=== PATIENT | female | born 1935 | race Caucasian/White ===

== ENCOUNTER 2020-04-28 20:26 | Inpatient (IN) | payer OTHER ==
[2020-04-28 20:51] VITALS: BMI 22.2
[2020-04-28] MEDS ORDERED: SODIUM CHLORIDE 1,000 ML IV STA (21:04)
--- NOTE | 2020-04-28 21:30 | PDOC ---
History of Present Illness - General Chief Complaint: Injury Stated Complaint: FALL Time Seen by Provider: 04/28/20 20:42 - History of Present Illness Initial Comments: 04/28/20 21:13 HPI: 85 y/o F with hx of HTN and HLD BIBEMS for fall from bed and has been on the ground for several hours, covered in stool. She reports reaching to her bedside table for her medicine bottle, but it fell. When she tried reaching for it, she fell out of bed and wasnt able to get up. She has been sitting with her back against the bed since ?5am. She said she hasnt been able to get up because she has a "bone problem." Her family had been trying to reach her today but hasnt responded, prompting an EMS call. She denies fever, chills, dysura, change in BM, SOB, chest pain, PRESTON, LH, change in vision. Of note, daughter and son have been reached and expressed concern of dementia. Her 3 weeks ago and 2 of her sons in the past 2 years due to cancer. She currently lives alone and performs all ADLs but has right hip problems. Family would like patient to be evaluated for dementia Evy (daughter): [phone] Pranav (son): [phone] PMHx: as noted above ROS: as noted SHx: Denies tobacco use; no alcohol use; no rec drugs Allergies: NKDA ROS: GENERAL/CONSTITUTIONAL: No fever or chills. No weakness. HEAD, EYES, EARS, NOSE AND THROAT: No change in vision. No ear pain or discharge. No sore throat. CARDIOVASCULAR: No chest pain or shortness of breath RESPIRATORY: No cough, wheezing, or hemoptysis. GASTROINTESTINAL: No nausea, vomiting, diarrhea or constipation. GENITOURINARY: No dysuria, frequency, or change in urination. MUSCULOSKELETAL: No joint or muscle swelling or pain. No neck or back pain. SKIN: +ecchymosis left eye NEUROLOGIC: No headache, vertigo, loss of consciousness, or change in strength/sensation. ENDOCRINE: No increased thirst. No abnormal weight change HEMATOLOGIC/LYMPHATIC: No anemia, easy bleeding, or history of blood clots. ALLERGIC/IMMUNOLOGIC: No hives or skin allergy. PE: GENERAL: Awake, alert, and fully oriented, no acute distress HEAD: left eye perioribital ecchymosis and left brow 2cm laceration not actively bleeding with mild edema, ttp EYES: EOMI, sclera anicteric, conjunctiva clear ENT: Auricles normal inspection, hearing grossly normal, nares patent, oropharynx clear without exudates. dry mucosa NECK: Normal ROM, no lymphadenopathy LUNGS: No increased work of breathing, symmetrical chest rise, clear to auscultation bilaterally, no wheezes, crackles or rhonchi HEART: Regular rate, regular rhythm, normal S1 and S2, no murmur, peripheral pulses 2+ and equal bilaterally. ABDOMEN: Soft, nondistended, nontender. No guarding, no rebound. No masses. No CVAT MUSCULOSKELETAL: FROM NEUROLOGICAL: Cranial nerves II through XII grossly intact. Normal speech, no focal sensorimotor deficits SKIN: Warm, Dry, normal turgor, no rashes or lesions noted Past History - Medical History Allergies/Adverse Reactions: Allergies Allergy/AdvReac Type Severity Reaction Status Date / Time No Known Drug Allergies Allergy Verified 04/28/20 20:46 Home Medications: Ambulatory Orders Aspirin [ASA -] 81 mg PO DAILY #0 tab.chew 09/06/13 Simvastatin [Zocor -] 10 mg PO HS #0 tablet 09/06/13 Acetaminophen [Tylenol .Regular Strength -] 650 mg PO Q4H PRN 04/03/14 Anemia: No Asthma: No Cancer: No Cardiac Disorders: Yes (STENOSIS) CVA: No COPD: No CHF: No Dementia: No Diabetes: No GI Disorders: No Disorders: No HTN: No Hypercholesterolemia: Yes Liver Disease: No Seizures: No Thyroid Disease: No - Surgical History Abdominal Surgery: No Appendectomy: No Cardiac Surgery: Yes (CARDIAC CATH - 2 WEEKS AGO) Cholecystectomy: No Lung Surgery: No Orthopedic Surgery: No - Psycho-Social/Smoking History Smoking History: Never smoked Have you smoked in the past 12 months: No If you are a former smoker, when did you quit?: 40YRS AGO - Substance Abuse Hx (Audit-C & DAST Scrn) How often the patient has a drink containing alcohol: Never Score: In Men: 4 or > Positive; In Women: 3 or > Positive: 0 Screen Result (Pos requires Nsg. Audit-10AR): Negative In the last yr the pt used illegal drug/Rx for NonMed reason: No Score: Yes response is considered Positive: 0 Screen Result (Positive result requires Nsg. DAST-10): Negative *Physical Exam - Vital Signs Last Vital Signs Temp Pulse Resp BP Pulse Ox 97.8 F 79 17 145/70 97 04/28/20 20:30 04/28/20 20:30 04/28/20 20:30 04/28/20 20:30 04/28/20 20:30 ED Treatment Course - LABORATORY CBC & Chemistry Diagram: 04/28/20 21:30 04/28/20 21:30 - RADIOLOGY Radiology Studies Ordered: Category Date Time Status CERVICAL SPINE CT W/O CONTR [CT] Stat CT Scan 04/28/20 21:[address] W/O CONTRAST [CT] Stat CT Scan 04/28/20 21:[address] WITHOUT CONTRAST [CT] Stat CT Scan 04/28/20 21:[address] W/O CONTRAST [CT] Stat CT Scan 04/28/20 21:[address] W/O CONTRAST [CT] Stat CT Scan 04/28/20 21:11 Ordered CXRPORT [CHEST X-RAY PORTABLE*] [RAD] Stat Radiology 04/28/20 21:03 Ordered Medical Decision Making - Medical Decision Making 04/28/20 21:52 85 y/o F with hx of HTN and HLD BIBEMS for fall from bed and has been on the ground for several hours, covered in stool. Family concern for functional decline and dementia over the past 3weeks since . VSS, AF. PE with left periorbital ecchymosis and left brow laceration with mild edema. -cbc, cmp, coags, ua, card prof, ekg, cxr -CT head, CT C/T/L spine, CT face -ivf 04/28/20 23:26 CK ~1200 WBC 12.6 pending ekg, ua, CT reports will admit for fall, inability to ambulate 04/29/20 00:24 CT findings include fracture at the tip of the right L2 transverse process; cholelithiasis with gallbladder wall thickening and pericholecystic fluid concerning for acute cholecystitis but a malignant mass cannot be ruled out; left hydronephorsis Will continue to RUQ and kidney US CT head and C spine negative Discharge - Discharge Information Problems reviewed: Yes Clinical Impression/Diagnosis: Fall, Head trauma Condition: Fair - Admission Yes - Follow up/Referral - Patient Discharge Instructions - Post Discharge Activity
[2020-04-28 21:55] LABS: BASO % 0.3 % (0-2.0); EOS % 0.1 % (0-4.5); HEMATOCRIT 41.1 % (32.4-45.2); HEMOGLOBIN 13.5 GM/dL (10.7-15.3); LYMPH % 10.9 % (8-40); MCH 30.4 pg (25.7-33.7); MCHC 32.9 g/dl (32.0-36.0); MEAN CELL VOLUME 92.3 fl (80-96); MONO % 7.4 % (3.8-10.2); NEUT % 81.3 % (42.8-82.8); PLATELET COUNT 257 K/MM3 (134-434); RBC 4.45 M/mm3 (3.60-5.2); WHITE BLOOD COUNT 12.8 K/mm3 (4.0-10.0)
--- NOTE | 2020-04-28 22:00 | PDOC ---
Documentation entered by Jarrell Milligan SCRIBE, acting as scribe for Tao Hennessy MD. Tao Hennessy MD: This documentation has been prepared by the Srini davis Nirvannie, SCRIBE, under my direction and personally reviewed by me in its entirety. I confirm that the documentation accurately reflects all work, treatment, procedures, and medical decision making performed by me. Attending Attestation - Resident Resident Name: BinhStalin - ED Attending Attestation I have performed the following: I have examined & evaluated the patient, The case was reviewed & discussed with the resident, I agree w/resident's findings & plan, Exceptions are as noted - HPI HPI: 04/28/20 21:54 The patient is an 85 year old female with a significant past medical history of HTN and HLD who presents to the ED via EMS s/p fall. As per patient,at approximately 5am she was reaching for her medicine bottle on her nightstand when she fell off the bed. Pt was unable to get up afterwards. Family notes attempting to call her multiple times today without a response, prompting their call to EMS. When EMS arrived, pt was encountered lying in her own feces on the ground. - Physicial Exam PE: 04/28/20 22:01 See resident exam - Medical Decision Making 04/28/20 22:02 85 F found down at home after falling out of bed. - Labs - CTs - Admit Discharge - Discharge Information Problems reviewed: Yes Clinical Impression/Diagnosis: Fall, Head trauma Condition: Fair - Follow up/Referral - Patient Discharge Instructions - Post Discharge Activity
[2020-04-28 22:02] LABS: INR 1.02 (0.83-1.09)
[2020-04-28 22:05] LABS: ACTIVATED PTT 30.2 SECONDS (25.2-36.5)
[2020-04-28 22:25] LABS: ALBUMIN 3.3 g/dl (3.4-5.0); BILIRUBIN,TOTAL 0.9 mg/dL (0.2-1); BLOOD UREA NITROGEN 18.4 mg/dL (7-18); CALCIUM 8.9 mg/dL (8.5-10.1); CREATININE 1.2 mg/dL (0.55-1.3); MAGNESIUM 2.2 mg/dL (1.8-2.4); POTASSIUM 3.8 mmol/L (3.5-5.1); TOT PROT 7.2 g/dl (6.4-8.2)
[2020-04-29] MEDS ORDERED: DIPHTH,PERTUSS(ACELL),TET 0.5 ML DISP.SYRIN IM ONE ×2 (00:34→01:41)
[2020-04-29 00:48] LABS: EPI CELLS 1 /uL (0-25.1); HYALINE CASTS 5 /uL (0-3.1); URINE APPEARANCE CLOUDY; URINE BILIRUBIN NEGATIVE (NEGATIVE); URINE COLOR YELLOW; URINE GLUCOSE (UA) NEGATIVE (NEGATIVE); URINE KETONE NEGATIVE (NEGATIVE); URINE LEUK ESTERASE 3+ (NEGATIVE); URINE NITRITE POSITIVE (NEGATIVE); URINE PROTEIN 1+ (NEGATIVE); URINE RBC 271 /uL (0-23.9); URINE WBC 834 /uL (0-25.8)
[2020-04-29] MEDS ORDERED: CEFTRIAXONE 1 GM in DEXTROSE 5%-WATER - 50 ML IVPB ONE (00:49)
--- NOTE | 2020-04-29 00:55 | HP ---
CHIEF COMPLAINT: Fall at home, Unable to Ambulate PCP: Dr Cordoba HISTORY OF PRESENT ILLNESS: This is a 85 y/o female with a PMHx of HTN, HLD. Who presents to the ED via ambulance s/p fall, unable to ambulate x yesterday morning. Patient reports attempting to retrieve her medicine bottle from her bedside table and fell OOB, unable to get up. She reports lying on the floor since morning time, soiling herself. Patient denies LOC. She reports joint aches. Per ED record: The patient's daughter and son had expressed concerns of the patient's cognitive status ?Dementia Patient reports living alone since her 's 3 weeks ago. She reports that her daughter takes her food shopping and that she cares for herself and uses a cane with ambulation. Patient denies fever, chills, cough, SOB, PRESTON, dizziness, blurred vision, CP, palpitations, AP, N/V/D, constipation, dysuria. Patient denies sick contacts or recent travel ER course was notable for: (1) Head CT- neg ICH (2) C Spine CT- neg fx or subluxation (3) Facial Bones CT- no acute orbital, nasal bone, zygomatic arch or madibular fx (4) Lumbar CT- Fx at the tip of R- L2 transverse process. There is otherwise no evidence of lumbar spine acute fx or subluxation (5) Chest CT- Acute mildly displaced right transverse process fx. No other acute fx or dislocation or traumatic subluxation. Severe left hydronephrosis Cholelithiasis with GBW thickening, pericholecystic fluid suspicious for acute cholecystitis and a malignant mass in the gallbladder wall cannot be excluded Recent Travel: None PAST MEDICAL HISTORY: HTN HLD PAST SURGICAL HISTORY: Social History: Smoking: Never Alcohol: None Drugs: None Lives alone, recently , ambulates with cane, family assists with grocery shopping Allergies No Known Drug Allergies Allergy (Verified 04/28/20 20:46) HOME MEDICATIONS: Home Medications Medication Instructions Recorded Aspirin [ASA -] 81 mg PO DAILY #0 tab.chew 09/06/13 Simvastatin [Zocor -] 10 mg PO HS #0 tablet 09/06/13 Acetaminophen [Tylenol .Regular 650 mg PO Q4H PRN 04/03/14 Strength -] REVIEW OF SYSTEMS CONSTITUTIONAL: Absent: fever, chills, diaphoresis, generalized weakness, malaise, loss of appetite, weight change HEENT: Absent: rhinorrhea, nasal congestion, throat pain, throat swelling, difficulty swallowing, mouth swelling, ear pain, eye pain, visual changes CARDIOVASCULAR: Absent: chest pain, syncope, palpitations, irregular heart rate, lightheadedness, peripheral edema RESPIRATORY: Absent: cough, shortness of breath, dyspnea with exertion, orthopnea, wheezing, stridor, hemoptysis GASTROINTESTINAL: Absent: abdominal pain, abdominal distension, nausea, vomiting, diarrhea, constipation, melena, hematochezia GENITOURINARY: Absent: dysuria, frequency, urgency, hesitancy, hematuria, flank pain, genital pain MUSCULOSKELETAL: arthralgia Absent: myalgia, joint swelling, back pain, neck pain SKIN: Absent: rash, itching, pallor HEMATOLOGIC/IMMUNOLOGIC: Absent: easy bleeding, easy bruising, lymphadenopathy, frequent infections ENDOCRINE: Absent: unexplained weight gain, unexplained weight loss, heat intolerance, cold intolerance NEUROLOGIC: unsteady gait Absent: headache, focal weakness or paresthesias, dizziness, seizure, mental status changes, bladder or bowel incontinence PSYCHIATRIC: Absent: anxiety, depression, suicidal or homicidal ideation, hallucinations. PHYSICAL EXAMINATION Vital Signs - 24 hr 04/28/20 20:30 Temperature 97.8 F Pulse Rate 79 Respiratory 17 Rate Blood Pressure 145/70 O2 Sat by Pulse 97 Oximetry (%) GENERAL: Awake, alert, and fully oriented, in no acute distress. HEAD: Lac to L- brow, no active bleed, Normocephalic EYES:+Ecchymotic bruising to L- Orbit. Pupils equal, round and reactive to light, extraocular movements intact, sclera anicteric, conjunctiva clear. No lid lag. EARS, NOSE, THROAT: Dry mucous membranes. Ears normal, nares patent, oropharynx clear without exudates. NECK: Normal range of motion, supple without lymphadenopathy, JVD, or masses. LUNGS: Breath sounds equal, clear to auscultation bilaterally. No wheezes, and no crackles. No accessory muscle use. HEART: Regular rate and rhythm, normal S1 and S2 without murmur, rub or gallop. ABDOMEN: Soft, nontender, not distended, normoactive bowel sounds, no guarding, no rebound, no masses. No hepatomegaly or splenomegaly. MUSCULOSKELETAL:Tenderness to b/l shoulders, knees. Normal range of motion at all joints. No bony deformities or No CVA tenderness. UPPER EXTREMITIES: 2+ pulses, warm, well-perfused. No cyanosis. No clubbing. No peripheral edema. LOWER EXTREMITIES: 2+ pulses, warm, well-perfused. No calf tenderness. No peripheral edema. NEUROLOGICAL: Cranial nerves II-XII intact. Normal speech. Gait not observed. PSYCHIATRIC: Cooperative. Good eye contact. Appropriate mood and affect. SKIN: Eccyhmotic briusing to L- Orbit, Warm, dry, normal turgor, no rashes or lesions noted, normal capillary refill. Laboratory Results - last 24 hr 04/28/20 04/28/20 04/28/20 21:30 21:30 21:30 WBC 12.8 H RBC 4.45 Hgb 13.5 Hct 41.1 MCV 92.3 MCH 30.4 MCHC 32.9 RDW 14.0 Plt Count 257 MPV 9.0 Absolute Neuts (auto) 10.4 H Neutrophils % 81.3 D Lymphocytes % 10.9 D Monocytes % 7.4 Eosinophils % 0.1 D Basophils % 0.3 Nucleated RBC % 0 PT with INR 12.00 INR 1.02 PTT (Actin FS) 30.2 Sodium 140 Potassium 3.8 Chloride 105 Carbon Dioxide 28 Anion Gap 6 L BUN 18.4 H Creatinine 1.2 Est GFR (CKD-EPI)AfAm 47.06 Est GFR (CKD-EPI)NonAf 40.60 Random Glucose 105 Calcium 8.9 Magnesium 2.2 Total Bilirubin 0.9 AST 41 H ALT 22 Alkaline Phosphatase 93 Creatine Kinase Creatine Kinase Index CK-MB (CK-2) Troponin I Total Protein 7.2 Albumin 3.3 L Urine Color Urine Appearance Urine pH Ur Specific [place] Urine Protein Urine Glucose (UA) Urine Ketones Urine Blood Urine Nitrite Urine Bilirubin Urine Urobilinogen Ur Leukocyte Esterase Urine WBC (Auto) Urine RBC (Auto) Urine Casts (Auto) U Epithel Cells (Auto) Urine Bacteria (Auto) 04/28/20 04/29/20 21:30 00:10 WBC RBC Hgb Hct MCV MCH MCHC RDW Plt Count MPV Absolute Neuts (auto) Neutrophils % Lymphocytes % Monocytes % Eosinophils % Basophils % Nucleated RBC % PT with INR INR PTT (Actin FS) Sodium Potassium Chloride Carbon Dioxide Anion Gap BUN Creatinine Est GFR (CKD-EPI)AfAm Est GFR (CKD-EPI)NonAf Random Glucose Calcium Magnesium Total Bilirubin AST ALT Alkaline Phosphatase Creatine Kinase 1166 H Creatine Kinase Index 0.7 CK-MB (CK-2) 9.0 H Troponin I 0.03 Total Protein Albumin Urine Color Yellow Urine Appearance Cloudy Urine pH 8.0 Ur Specific [place] 1.008 L Urine Protein 1+ H Urine Glucose (UA) Negative Urine Ketones Negative Urine Blood 2+ H Urine Nitrite Positive H Urine Bilirubin Negative Urine Urobilinogen 1.0 Ur Leukocyte Esterase 3+ H Urine WBC (Auto) 834 Urine RBC (Auto) 271 Urine Casts (Auto) 5 U Epithel Cells (Auto) 1 Urine Bacteria (Auto) >10,000 ASSESSMENT/PLAN: This is a 85 y/o female with a PMhx of HTN, HLD. Admitted to Telemetry for Rhabdomyolosis, UTI, s/p Fall, Unable to Ambulate for further evaluation of their emergent condition. Plan: 1. Rhabdomyolosis Cardiac Monitoring Serial Enzymes Appreciate Cardiology consult [id number], likely secondary to fall NS bolus given in ED, will continue gentle IVF EKG- NSR Monitor CBC, CMP 2. UTI UA- +1 protein, +2 blood, +nitrate, +3 leukocyte esterase, 834 WBC, >10,000 Bacteria Urine Culture-pending Will start on Ceftriaxone empirically, until UC resulted Monitor CBC Monitor vitals 3. Fall fall at home Head CT- neg ICH C-spine CT- neg fx or subluxation Facial Bones- no acute orbital, nasal bone, zygomatic arch or mandibular fx Lumbar CT- fx at the tip of right L2 transverse process Chest CT- acute mildly displaced right transverse process fx. no other acute fx or dislocation or traumatic subluxation. Severe left hydronephrosis. Cholelithiasis with GBW thickening. ?cholecystitis and a malignant mass in the gallbladder wall cannot be excluded Consider Ortho Consult Consider PT Eval Wound Care Fall Precautions Monitor vitals 4. Leukocytosis Likely secondary to infection vs inflammation vs malignancy Blood Cultures-pending Currently treating for UTI Patient is currently afebrile CT Chest -reviewed Monitor CBC Monitor vitals 5. Unable to ambulate Likely secondary to Fall vs OA Pt Eval- will defer to PMD Fall Precautions Tylenol prn Neurovascular-checks 6. Hypertension stable Monitor BP Will need to verify home med with pts pharmacy or PMD in am Monitor renal function 7. Hyperlipidemia stable Continue home med Monitor LFTs 8. Person Under Investigation for COVID 19 Infection SMART PORTFOLIO LEAD- 1, low risk COVID PCR-pending Isolation Precautions FEN NS@75ml/hr Replete lytes prn NPO DVT ppx OOB SCDs Heparin SQ Dispo: Requires Inpatient Care Family Medical History Family History: Unremarkable Problem List - Problem (1) Rhabdomyolysis Code(s): M62.82 - RHABDOMYOLYSIS (2) UTI (urinary tract infection) Code(s): N39.0 - URINARY TRACT INFECTION, SITE NOT SPECIFIED (3) Fall Code(s): W19.XXXA - UNSPECIFIED FALL, INITIAL ENCOUNTER (4) Unable to ambulate Code(s): R26.2 - DIFFICULTY IN WALKING, NOT ELSEWHERE CLASSIFIED (5) Leukocytosis Code(s): D72.829 - ELEVATED WHITE BLOOD CELL COUNT, UNSPECIFIED (6) HTN (hypertension) Code(s): I10 - ESSENTIAL (PRIMARY) HYPERTENSION (7) HLD (hyperlipidemia) Code(s): E78.5 - HYPERLIPIDEMIA, UNSPECIFIED (8) Person under investigation for COVID-19 Code(s): Z20.828 - CONTACT W AND EXPOSURE TO OTH VIRAL COMMUNICABLE DISEASES Visit type - Emergency Visit Emergency Visit: Yes ED Registration Date: 04/28/20 Care time: The patient presented to the Emergency Department on the above date and was hospitalized for further evaluation of their emergent condition. - New Patient This patient is new to me today: Yes Date on this admission: 04/29/20 - Critical Care Critical Care patient: No
[2020-04-29] MEDS ORDERED: CEFTRIAXONE 1 GM/50 ML BAG ONE ×2 (01:40→09:35)
[2020-04-29] MEDS: SODIUM CHLORIDE 1,000 ML IV SCH (01:56)
[2020-04-29 09:00] LABS: BASO % 0.7 % (0-2.0); EOS % 1.8 % (0-4.5); HEMATOCRIT 38.5 % (32.4-45.2); HEMOGLOBIN 12.5 GM/dL (10.7-15.3); LYMPH % 15.4 % (8-40); MCH 30.2 pg (25.7-33.7); MCHC 32.3 g/dl (32.0-36.0); MEAN CELL VOLUME 93.3 fl (80-96); MEAN PLT VOLUME 9.5 fl (7.5-11.1); MONO % 8.7 % (3.8-10.2); NEUT % 73.4 % (42.8-82.8); PLATELET COUNT 235 K/MM3 (134-434); RBC 4.13 M/mm3 (3.60-5.2); RDW 14.1 % (11.6-15.6); WHITE BLOOD COUNT 9.7 K/mm3 (4.0-10.0)
[2020-04-29 09:42] LABS: ALBUMIN 2.6 g/dl (3.4-5.0); BILIRUBIN,TOTAL 0.6 mg/dL (0.2-1); CALCIUM 7.9 mg/dL (8.5-10.1); MAGNESIUM 2.1 mg/dL (1.8-2.4); PHOSPHOROUS 2.8 mg/dL (2.5-4.9); POTASSIUM 3.8 mmol/L (3.5-5.1); TOT PROT 5.9 g/dl (6.4-8.2)
--- NOTE | 2020-04-29 10:21 | EKG ---
Test Reason : Blood Pressure : / mmHG Vent. Rate : 080 BPM Atrial Rate : 080 BPM P-R Int : 176 ms QRS Dur : 084 ms QT Int : 394 ms P-R-T Axes : 045 042 026 degrees QTc Int : 454 ms NORMAL SINUS RHYTHM NORMAL ECG WHEN COMPARED WITH ECG OF 10-SEP-2018 13:15, Previous ECG with lead misplacement, probably no new changes Confirmed by Noemí Daniel ([id number]) on 04/29/2020 10:21:10 AM Referred By: Confirmed By:Noemí Daniel
--- NOTE | 2020-04-29 13:07 | HP ---
Admitting History and Physical - Primary Care Physician PCP: Evelio Cordoba - Admission Chief Complaint: Fall History of Present Illness: 85 y/o female with a PMHx of HTN, HLD. Who presents to the ED via ambulance s/p fall, Dementia, unable to ambulate x yesterday morning. Patient reports attempting to retrieve her medicine bottle from her bedside table and fell OOB, unable to get up. She reports lying on the floor since morning time, soiling h erself. Patient denies LOC. She reports joint aches. Patient reports living alone since her 's 3 weeks ago. She reports that her daughter takes her food shopping and that she cares for herself and uses a cane with ambulation. Patient denies fever, chills, cough, SOB, PRESTON, dizziness, blurred vision, CP, palpitations, AP, N/V/D, constipation, dysuria. Patient denies sick contacts or recent travel ER course was notable for: (1) Head CT- neg ICH (2) C Spine CT- neg fx or subluxation (3) Facial Bones CT- no acute orbital, nasal bone, zygomatic arch or madibular fx (4) Lumbar CT- Fx at the tip of R- L2 transverse process. There is otherwise no evidence of lumbar spine acute fx or subluxation (5) Chest CT- Acute mildly displaced right transverse process fx. No other acute fx or dislocation or traumatic subluxation. 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: Yes: Dementia Cardiovascular: Yes: HTN - Smoking History Smoking history: Never smoked Have you smoked in the past 12 months: No If you are a former smoker, when did you quit?: 40YRS AGO - Alcohol/Substance Use Hx Alcohol Use: No Home Medications - Allergies Allergies/Adverse Reactions: Allergies Allergy/AdvReac Type Severity Reaction Status Date / Time No Known Drug Allergies Allergy Verified 04/28/20 20:46 - Home Medications Home Medications: Ambulatory Orders Aspirin [ASA -] 81 mg PO DAILY #0 tab.chew 09/06/13 Simvastatin [Zocor -] 10 mg PO HS #0 tablet 09/06/13 Acetaminophen [Tylenol .Regular Strength -] 650 mg PO Q4H PRN 04/03/14 Physical Examination Vital Signs: Vital Signs Temperature 98.6 F 04/29/20 07:06 Pulse Rate 67 04/29/20 07:06 Respiratory Rate 16 04/29/20 08:09 Blood Pressure 135/57 L 04/29/20 07:06 O2 Sat by Pulse Oximetry (%) 97 04/29/20 08:09 Labs: CBC, BMP 04/29/20 08:03 04/29/20 08:03 Problem List - Problems (1) Atrophic kidney Code(s): N26.1 - ATROPHY OF KIDNEY (TERMINAL) (2) Fall Code(s): W19.XXXA - UNSPECIFIED FALL, INITIAL ENCOUNTER (3) HLD (hyperlipidemia) Code(s): E78.5 - HYPERLIPIDEMIA, UNSPECIFIED (4) HTN (hypertension) Code(s): I10 - ESSENTIAL (PRIMARY) HYPERTENSION (5) Hydronephrosis Code(s): N13.30 - UNSPECIFIED HYDRONEPHROSIS (6) Leukocytosis Code(s): D72.829 - ELEVATED WHITE BLOOD CELL COUNT, UNSPECIFIED (7) Dementia Code(s): F03.90 - UNSPECIFIED DEMENTIA WITHOUT BEHAVIORAL DISTURBANCE (8) Sepsis Code(s): A41.9 - SEPSIS, UNSPECIFIED ORGANISM
--- NOTE | 2020-04-29 13:35 | CON.GU ---
Consult Consult Specialty:: Referred by:: Yash Reason for Consultation:: L hydronephrosis - History of Present Illness Chief Complaint: s/p fall History of Present Illness: 85 y/o female with a PMHx of HTN, HLD. Who presents to the ED via ambulance s/p fall, unable to ambulate x yesterday morning. Patient reports attempting to retrieve her medicine bottle from her bedside table and fell OOB, unable to get up. She reports lying on the floor since morning time, soiling herself. Patient denies LOC. She reports joint aches. Per ED record: The patient's daughter and son had expressed concerns of the patient's cognitive status ?Dementia Patient reports living alone since her 's 3 weeks ago. She reports that her daughter takes her food shopping and that she cares for herself and uses a cane with ambulation. Patient denies fever, chills, cough, SOB, PRESTON, dizziness, blurred vision, CP, palpitations, AP, N/V/D, constipation, dysuria. Patient denies sick contacts or recent travel cons req. ER course was notable for: (1) Head CT- neg ICH (2) C Spine CT- neg fx or subluxation (3) Facial Bones CT- no acute orbital, nasal bone, zygomatic arch or madibular fx (4) Lumbar CT- Fx at the tip of R- L2 transverse process. There is otherwise no evidence of lumbar spine acute fx or subluxation (5) Chest CT- Acute mildly displaced right transverse process fx. No other acute fx or dislocation or traumatic subluxation. 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 No: Renal Calculi - Alcohol/Substance Use Hx Alcohol Use: No - Smoking History Smoking history: Never smoked Have you smoked in the past 12 months: No If you are a former smoker, when did you quit?: 40YRS AGO Home Medications - Allergies Allergies/Adverse Reactions: Allergies Allergy/AdvReac Type Severity Reaction Status Date / Time No Known Drug Allergies Allergy Verified 04/28/20 20:46 - Home Medications Home Medications: Ambulatory Orders Aspirin [ASA -] 81 mg PO DAILY #0 tab.chew 09/06/13 Simvastatin [Zocor -] 10 mg PO HS #0 tablet 09/06/13 Acetaminophen [Tylenol .Regular Strength -] 650 mg PO Q4H PRN 04/03/14 Review of Systems - Review of Systems Genitourinary: denies: Burning, Dysuria, Flank Pain, Frequency, Hematuria Physical Exam- Vital Signs: Vital Signs Temperature 98.6 F 04/29/20 07:06 Pulse Rate 67 04/29/20 07:06 Respiratory Rate 16 04/29/20 08:09 Blood Pressure 135/57 L 04/29/20 07:06 O2 Sat by Pulse Oximetry (%) 97 04/29/20 08:09 Constitutional: Yes: Well Nourished, No Distress, Calm Gastrointestinal: Yes: WNL, Normal Bowel Sounds, Soft Renal/: Yes: WNL. No: CVA Tenderness - Left Kidneys: No: Flank Pain Left Pelvis: Yes: WNL External Genitalia: Yes: WNL Labs: CBC, BMP 04/29/20 08:03 04/29/20 08:03 Imaging - Results Cat Scan: Report Reviewed Ultrasound: Report Reviewed Problem List - Problems (1) Hydronephrosis Assessment/Plan: no urologic intervention necessary Code(s): N13.30 - UNSPECIFIED HYDRONEPHROSIS (2) Atrophic kidney Code(s): N26.1 - ATROPHY OF KIDNEY (TERMINAL) (3) Leukocytosis Code(s): D72.829 - ELEVATED WHITE BLOOD CELL COUNT, UNSPECIFIED (4) UTI (urinary tract infection) Assessment/Plan: Ur cx, iv ceftriaxone, f/u in my office after disch for cystoscopy, uroflow, PVR Code(s): N39.0 - URINARY TRACT INFECTION, SITE NOT SPECIFIED
--- NOTE | 2020-04-29 20:16 | CON.GI ---
Consult Consult Specialty:: Gastroenterology Referred by:: Dr Cordoba Reason for Consultation:: Cholelithiasis, rule out GB tumor - History of Present Illness Chief Complaint: Found lying in her feces at home History of Present Illness: 85F was found to be lying in her feces at home. She lives alone since her several weeks ago. She cannot recall recent events leading to her fall. She denies abdominal pain. Her chest CT revealed a thick walled GB with stones but the sonogram is unable to locate the GB. She has no scars to suggest a previous cholecystectomy. 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 D&C. s/p benign left lumpectomy - Alcohol/Substance Use Hx Alcohol Use: No - Smoking History Smoking history: Former smoker Have you smoked in the past 12 months: No If you are a former smoker, when did you quit?: 40YRS AGO Home Medications - Allergies Allergies/Adverse Reactions: Allergies Allergy/AdvReac Type Severity Reaction Status Date / Time No Known Drug Allergies Allergy Verified 04/28/20 20:46 - Home Medications Home Medications: Ambulatory Orders Aspirin [ASA -] 81 mg PO DAILY #0 tab.chew 09/06/13 Simvastatin [Zocor -] 10 mg PO HS #0 tablet 09/06/13 Acetaminophen [Tylenol .Regular Strength -] 650 mg PO Q4H PRN 04/03/14 Family Medical History Family Hx Cancer: Mother (Uterine cancer) Other Family History: Father age 42 of an accident Physical Exam-GI Vital Signs: Vital Signs Temperature 98.0 F 04/29/20 17:06 Pulse Rate 63 04/29/20 17:06 Respiratory Rate 16 04/29/20 08:09 Blood Pressure 139/67 04/29/20 17:06 O2 Sat by Pulse Oximetry (%) 97 04/29/20 17:06 CBC,CMP WBC 9.7 K/mm3 (4.0-10.0) 04/29/20 08:03 RBC 4.13 M/mm3 (3.60-5.2) 04/29/20 08:03 Hgb 12.5 GM/dL (10.7-15.3) 04/29/20 08:03 Hct 38.5 % (32.4-45.2) 04/29/20 08:03 MCV 93.3 fl (80-96) 04/29/20 08:03 MCH 30.2 pg (25.7-33.7) 04/29/20 08:03 MCHC 32.3 g/dl (32.0-36.0) 04/29/20 08:03 RDW 14.1 % (11.6-15.6) 04/29/20 08:03 Plt Count 235 K/MM3 (134-434) 04/29/20 08:03 MPV 9.5 fl (7.5-11.1) 04/29/20 08:03 Absolute Neuts (auto) 7.1 K/mm3 (1.5-8.0) 04/29/20 08:03 Neutrophils % 73.4 % (42.8-82.8) 04/29/20 08:03 Lymphocytes % 15.4 % (8-40) D 04/29/20 08:03 Monocytes % 8.7 % (3.8-10.2) 04/29/20 08:03 Eosinophils % 1.8 % (0-4.5) D 04/29/20 08:03 Basophils % 0.7 % (0-2.0) 04/29/20 08:03 Nucleated RBC % 0 % (0-0) 04/29/20 08:03 Sodium 141 mmol/L (136-145) 04/29/20 08:03 Potassium 3.8 mmol/L (3.5-5.1) 04/29/20 08:03 Chloride 110 mmol/L (98-107) H 04/29/20 08:03 Carbon Dioxide 25 mmol/L (21-32) 04/29/20 08:03 Anion Gap 6 MMOL/L (8-16) L 04/29/20 08:03 BUN 15.0 mg/dL (7-18) 04/29/20 08:03 Creatinine 1.0 mg/dL (0.55-1.3) 04/29/20 08:03 Est GFR (CKD-EPI)AfAm 58.66 04/29/20 08:03 Est GFR (CKD-EPI)NonAf 50.61 04/29/20 08:03 Random Glucose 79 mg/dL (74-106) 04/29/20 08:03 Calcium 7.9 mg/dL (8.5-10.1) L 04/29/20 08:03 Phosphorus 2.8 mg/dL (2.5-4.9) 04/29/20 08:03 Magnesium 2.1 mg/dL (1.8-2.4) 04/29/20 08:03 Total Bilirubin 0.6 mg/dL (0.2-1) 04/29/20 08:03 AST 34 U/L (15-37) 04/29/20 08:03 ALT 18 U/L (13-61) 04/29/20 08:03 Alkaline Phosphatase 75 U/L (45-117) 04/29/20 08:03 Creatine Kinase 752 U/L (26-192) H 04/29/20 08:03 Creatine Kinase Index 0.7 % (0.0-5.0) 04/29/20 08:03 CK-MB (CK-2) 5.6 ng/mL (0.5-3.6) H 04/29/20 08:03 Troponin I 0.03 ng/ml (0.00-0.05) 04/29/20 08:03 Total Protein 5.9 g/dl (6.4-8.2) L 04/29/20 08:03 Albumin 2.6 g/dl (3.4-5.0) L 04/29/20 08:03 TSH 1.65 uIU/ml (0.358-3.74) 04/29/20 08:03 Current Medications Generic Name Dose Route Start Last Admin Trade Name Freq PRN Reason Stop Dose Admin Ceftriaxone Sodium 1 gm/ 50 mls @ 100 mls/hr 04/30/20 10:00 Dextrose IVPB DAILY GAL Protocol Sodium Chloride 1,000 mls @ 75 mls/hr 04/29/20 01:15 04/29/20 01:56 Normal Saline - IV 75 mls/hr ASDIR GAL Administration Pneumococcal 13-Valent Conj Vacc 0.5 ml 04/29/20 19:41 Prevnar 13 Syringe - IM 04/29/20 19:42 .ONCE ONE Constitutional: Yes: Anxious Eyes: Yes: Conjunctiva Clear, Other (bruised) HENT: Yes: Atraumatic Neck: Yes: Supple Cardiovascular: Yes: Regular Rate and Rhythm Respiratory: Yes: CTA Bilaterally Gastrointestinal Inspection: Yes: WNL ...Auscultate: Yes: Normoactive Bowel Sounds ...Palpate: Yes: Soft, Other (nontender) ...Rectal Exam: Yes: Guaiac Negative (no masses) Edema: No Neurological: Yes: Alert Labs: CBC, BMP 04/29/20 08:03 04/29/20 08:03 INR, PTT INR 1.02 (0.83-1.09) 04/28/20 21:30 Problem List - Problems (1) Cholelithiasis Code(s): K80.20 - CALCULUS OF GALLBLADDER W/O CHOLECYSTITIS W/O OBSTRUCTION (2) Head trauma Code(s): S09.90XA - UNSPECIFIED INJURY OF HEAD, INITIAL ENCOUNTER (3) Narrow angle glaucoma of right eye Code(s): H40.20X0 - UNSP PRIMARY ANGLE-CLOSURE GLAUCOMA, STAGE UNSPECIFIED (4) Dementia Code(s): F03.90 - UNSPECIFIED DEMENTIA WITHOUT BEHAVIORAL DISTURBANCE (5) HLD (hyperlipidemia) Code(s): E78.5 - HYPERLIPIDEMIA, UNSPECIFIED (6) HTN (hypertension) Code(s): I10 - ESSENTIAL (PRIMARY) HYPERTENSION (7) Hydronephrosis Code(s): N13.30 - UNSPECIFIED HYDRONEPHROSIS (8) Person under investigation for COVID-19 Code(s): Z20.828 - CONTACT W AND EXPOSURE TO OTH VIRAL COMMUNICABLE DISEASES (9) Rhabdomyolysis Code(s): M62.82 - RHABDOMYOLYSIS Assessment/Plan Impression: - Although Liliana has known gallstones for many years and a suspected passage of CBD stones in 2006 she has no tenderness over the GB at present. Given the discrepancy with the sonogram I will order a MRCP to more definitively exclude cholecystitis and a neoplasm. If this remains in question then HIda scan will also be pursued Plan: -- MRCP, -- Hida scan if needed -- Serial LFTs
[2020-04-29] MEDS ORDERED: VANCOMYCIN 1 GM in D5W (PRE-DOCKED) 1,000 MG/250 ML IVPB ONE (23:34)
[2020-04-30] MEDS: SODIUM CHLORIDE 1,000 ML IV SCH (02:12)
[2020-04-30] MEDS ORDERED: cefTRIAXone SODIUM 1 GM VIAL ONE (08:35)
[2020-04-30] MEDS ORDERED: DEXTROSE 5%-WATER - 50 ML IVPB ONE (08:36)
[2020-04-30] MEDS: CEFTRIAXONE 1 GM in DEXTROSE 5%-WATER - 50 ML IVPB SCH (09:07)
--- NOTE | 2020-04-30 13:28 | CON.ORTH ---
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 D&C. s/p benign left lumpectomy - Alcohol/Substance Use Hx Alcohol Use: No - Smoking History Smoking history: Former smoker Have you smoked in the past 12 months: No If you are a former smoker, when did you quit?: 40YRS AGO Home Medications - Allergies Allergies/Adverse Reactions: Allergies Allergy/AdvReac Type Severity Reaction Status Date / Time No Known Drug Allergies Allergy Verified 04/28/20 20:46 - Home Medications Home Medications: Ambulatory Orders Aspirin [ASA -] 81 mg PO DAILY #0 tab.chew 09/06/13 Simvastatin [Zocor -] 10 mg PO HS #0 tablet 09/06/13 Acetaminophen [Tylenol .Regular Strength -] 650 mg PO Q4H PRN 04/03/14 Amlodipine Besylate [Norvasc -] 2.5 mg PO DAILY 04/30/20 Folic Acid 1 mg PO DAILY 04/30/20 Risedronate Sodium [Actonel] 150 mg PO MONTHLY 04/30/20 Physical Exam for Ortho Vital Signs: Vital Signs Temperature 98.2 F 04/30/20 09:21 Pulse Rate 59 L 04/30/20 09:21 Respiratory Rate 18 04/30/20 09:21 Blood Pressure 122/83 04/30/20 09:21 O2 Sat by Pulse Oximetry (%) 97 04/30/20 09:00 Labs: CBC, BMP 04/29/20 08:03 04/29/20 08:03 INR, PTT INR 1.02 (0.83-1.09) 04/28/20 21:30 - Affected Extremity Peripheral Pulses WNL: Yes Other Findings/Remarks: LS spine- + ttp L2, decr rom of LS spine, neg slr, 2+ refelxes b/l, nvi Imaging - Results Cat Scan: Report Reviewed, Image Reviewed Assessment/Plan 85 y/o female with a PMHx of HTN, HLD. Who presents to the ED via ambulance s/p fall, unable to ambulate x yesterday morning. Patient reports attempting to retrieve her medicine bottle from her bedside table and fell OOB, unable to get up. She reports lying on the floor since morning time, soiling herself. Patient denies LOC, bowel/bladder dysfunction, numbness or tingling. a/p nondisplaced L2 transverse process fx PT, wbat consider LSO brace if pain worsens, however at this point does not appear that she will need it analgesics prn d/w Dr. Love
--- NOTE | 2020-04-30 14:49 | PN ---
KINGA Warner Note Chief Complaint: no c/o - Objective Vital Signs: Vital Signs Temperature 98.2 F 04/30/20 09:21 Pulse Rate 59 L 04/30/20 09:21 Respiratory Rate 18 04/30/20 09:21 Blood Pressure 122/83 04/30/20 09:21 O2 Sat by Pulse Oximetry (%) 97 04/30/20 09:00 Constitutional: Yes: Well Nourished, No Distress, Calm Genitourinary: Yes: WNL. 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
--- NOTE | 2020-04-30 18:19 | PN ---
Progress Note, Physician History of Present Illness: Pt seen By ortho and consult noted Pt is relatively better Pt seen GI also and consult noted No Fever No SOB No Chest pain - Current Medication List Current Medications: Active Medications Ceftriaxone Sodium 1 gm/ (Dextrose) 50 mls @ 100 mls/hr IVPB DAILY GAL; Protocol Last Admin: 04/30/20 09:07 Dose: 100 mls/hr Documented by: Sodium Chloride (Normal Saline -) 1,000 mls @ 75 mls/hr IV ASDIR GAL Last Admin: 04/30/20 02:12 Dose: 75 mls/hr Documented by: Pneumococcal 13-Valent Conj Vacc (Prevnar 13 Syringe -) 0.5 ml IM .ONCE ONE Stop: 04/29/20 19:42 - Objective Vital Signs: Vital Signs Temperature 98 F 04/30/20 13:00 Pulse Rate 63 04/30/20 13:00 Respiratory Rate 20 04/30/20 13:00 Blood Pressure 153/67 04/30/20 13:00 O2 Sat by Pulse Oximetry (%) 97 04/30/20 09:00 Constitutional: Yes: No Distress Eyes: Yes: Conjunctiva Clear, EOM Intact HENT: Yes: Atraumatic, Other (Lt Eye Periorbital Ecchymosis) Neck: Yes: Supple, Trachea Midline Cardiovascular: Yes: Regular Rate and Rhythm, S1, S2 Respiratory: Yes: Regular, CTA Bilaterally Gastrointestinal: Yes: Normal Bowel Sounds, Soft Musculoskeletal: Yes: Other (arthritis) Edema: No Peripheral Pulses WNL: Yes Labs: CBC, BMP 04/29/20 08:03 04/29/20 08:03 INR, PTT INR 1.02 (0.83-1.09) 04/28/20 21:30 Problem List - Problems (1) Atrophic kidney Code(s): N26.1 - ATROPHY OF KIDNEY (TERMINAL) (2) Fall Code(s): W19.XXXA - UNSPECIFIED FALL, INITIAL ENCOUNTER (3) HLD (hyperlipidemia) Code(s): E78.5 - HYPERLIPIDEMIA, UNSPECIFIED (4) HTN (hypertension) Code(s): I10 - ESSENTIAL (PRIMARY) HYPERTENSION (5) Hydronephrosis Code(s): N13.30 - UNSPECIFIED HYDRONEPHROSIS (6) Leukocytosis Code(s): D72.829 - ELEVATED WHITE BLOOD CELL COUNT, UNSPECIFIED (7) Dementia Code(s): F03.90 - UNSPECIFIED DEMENTIA WITHOUT BEHAVIORAL DISTURBANCE (8) Sepsis Code(s): A41.9 - SEPSIS, UNSPECIFIED ORGANISM
--- NOTE | 2020-04-30 18:38 | PN.GI ---
GI Progress Note Subjective: GI Note: Liliana denies any abdominal pain. I spoke with her son Pranav who confirmed that Liliana never had GB surgery or a colonoscopy - Objective Vital Signs: Vital Signs Temperature 98 F 04/30/20 13:00 Pulse Rate 63 04/30/20 13:00 Respiratory Rate 20 04/30/20 13:00 Blood Pressure 153/67 04/30/20 13:00 O2 Sat by Pulse Oximetry (%) 97 04/30/20 09:00 Constitutional: No Distress ...Auscultate: Yes: Normoactive Bowel Sounds ...Palpate: Yes: Soft, Other (nontender) Labs: CBC, BMP 04/29/20 08:03 04/29/20 08:03 INR, PTT INR 1.02 (0.83-1.09) 04/28/20 21:30 Assessment/Plan Impression: - Innocent gallstones Plan: -- Will advance diet -- Await final MRCP reading but I see no immediate issues -- Hida scan if needed -- Serial LFTs Problem List - Problems (1) Cholelithiasis Code(s): K80.20 - CALCULUS OF GALLBLADDER W/O CHOLECYSTITIS W/O OBSTRUCTION (2) Head trauma Code(s): S09.90XA - UNSPECIFIED INJURY OF HEAD, INITIAL ENCOUNTER (3) Narrow angle glaucoma of right eye Code(s): H40.20X0 - UNSP PRIMARY ANGLE-CLOSURE GLAUCOMA, STAGE UNSPECIFIED (4) Dementia Code(s): F03.90 - UNSPECIFIED DEMENTIA WITHOUT BEHAVIORAL DISTURBANCE (5) HLD (hyperlipidemia) Code(s): E78.5 - HYPERLIPIDEMIA, UNSPECIFIED (6) HTN (hypertension) Code(s): I10 - ESSENTIAL (PRIMARY) HYPERTENSION (7) Hydronephrosis Code(s): N13.30 - UNSPECIFIED HYDRONEPHROSIS (8) Person under investigation for COVID-19 Code(s): Z20.828 - CONTACT W AND EXPOSURE TO OTH VIRAL COMMUNICABLE DISEASES (9) Rhabdomyolysis Code(s): M62.82 - RHABDOMYOLYSIS
[2020-05-01] MEDS: SODIUM CHLORIDE 1,000 ML IV SCH (06:11)
[2020-05-01 07:25] LABS: BASO % 0.9 % (0-2.0); EOS % 6.4 % (0-4.5); HEMATOCRIT 38.2 % (32.4-45.2); HEMOGLOBIN 12.4 GM/dL (10.7-15.3); LYMPH % 18.9 % (8-40); MCH 30.2 pg (25.7-33.7); MCHC 32.4 g/dl (32.0-36.0); MEAN CELL VOLUME 93.3 fl (80-96); MEAN PLT VOLUME 9.7 fl (7.5-11.1); MONO % 10.6 % (3.8-10.2); NEUT % 63.2 % (42.8-82.8); PLATELET COUNT 207 K/MM3 (134-434); RBC 4.09 M/mm3 (3.60-5.2); RDW 14.1 % (11.6-15.6); WHITE BLOOD COUNT 7.5 K/mm3 (4.0-10.0)
[2020-05-01 07:51] LABS: BLOOD UREA NITROGEN 17.7 mg/dL (7-18); CALCIUM 7.7 mg/dL (8.5-10.1); CREATININE 0.9 mg/dL (0.55-1.3); POTASSIUM 3.9 mmol/L (3.5-5.1)
[2020-05-01 07:56] LABS: ALBUMIN 2.4 g/dl (3.4-5.0); BILIRUBIN,DIRECT 0.1 mg/dL (0.0-0.2); BILIRUBIN,TOTAL 0.5 mg/dL (0.2-1); TOT PROT 5.4 g/dl (6.4-8.2)
[2020-05-01] MEDS ORDERED: cefTRIAXone SODIUM 1 GM VIAL ONE (08:58)
[2020-05-01] MEDS ORDERED: DEXTROSE 5%-WATER - 50 ML IVPB ONE (08:58)
[2020-05-01] MEDS: CEFTRIAXONE 1 GM in DEXTROSE 5%-WATER - 50 ML IVPB SCH (10:02)
--- NOTE | 2020-05-01 14:38 | PN ---
Progress Note (short form) - Note Progress Note: GI NOte: The MRI reading by Dr Hernandez of the GB is not normal. A GB neoplasm cannot be excluded. The CBD is normal. Dr. Hernandez has advised a surgical evaluation. Will obtain Hida scan and a Ca 19.9. She might benefit from an EUS but would need to be referred as we do not do this here. Dr Lai Sorenson at [facility] ([phone]) can do this. Problem List - Problems (1) Cholelithiasis Code(s): K80.20 - CALCULUS OF GALLBLADDER W/O CHOLECYSTITIS W/O OBSTRUCTION (2) Head trauma Code(s): S09.90XA - UNSPECIFIED INJURY OF HEAD, INITIAL ENCOUNTER (3) Narrow angle glaucoma of right eye Code(s): H40.20X0 - UNSP PRIMARY ANGLE-CLOSURE GLAUCOMA, STAGE UNSPECIFIED (4) Dementia Code(s): F03.90 - UNSPECIFIED DEMENTIA WITHOUT BEHAVIORAL DISTURBANCE (5) HLD (hyperlipidemia) Code(s): E78.5 - HYPERLIPIDEMIA, UNSPECIFIED (6) HTN (hypertension) Code(s): I10 - ESSENTIAL (PRIMARY) HYPERTENSION (7) Hydronephrosis Code(s): N13.30 - UNSPECIFIED HYDRONEPHROSIS (8) Person under investigation for COVID-19 Code(s): Z20.828 - CONTACT W AND EXPOSURE TO OTH VIRAL COMMUNICABLE DISEASES (9) Rhabdomyolysis Code(s): M62.82 - RHABDOMYOLYSIS
--- NOTE | 2020-05-01 14:46 | PN ---
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 Pt will go to [place] - Current Medication List Current Medications: Active Medications Ceftriaxone Sodium 1 gm/ (Dextrose) 50 mls @ 100 mls/hr IVPB DAILY GAL; Protocol Last Admin: 05/01/20 10:02 Dose: 100 mls/hr Documented by: Sodium Chloride (Normal Saline -) 1,000 mls @ 75 mls/hr IV ASDIR GAL Last Admin: 05/01/20 06:11 Dose: 75 mls/hr Documented by: Pneumococcal 13-Valent Conj Vacc (Prevnar 13 Syringe -) 0.5 ml IM .ONCE ONE Stop: 04/29/20 19:42 - Objective Vital Signs: Vital Signs Temperature 98 F 05/01/20 14:00 Pulse Rate 75 05/01/20 14:00 Respiratory Rate 18 05/01/20 14:00 Blood Pressure 142/84 05/01/20 14:00 O2 Sat by Pulse Oximetry (%) 99 05/01/20 09:00 Constitutional: Yes: No Distress Eyes: Yes: Conjunctiva Clear, EOM Intact HENT: Yes: Atraumatic, Normocephalic Neck: Yes: Supple, Trachea Midline Cardiovascular: Yes: Regular Rate and Rhythm, S1, S2 Respiratory: Yes: Regular, CTA Bilaterally Gastrointestinal: Yes: Normal Bowel Sounds, Soft Musculoskeletal: Yes: Joint Stiffness Edema: No Peripheral Pulses WNL: Yes Labs: CBC, BMP 05/01/20 05:37 05/01/20 05:37 INR, PTT INR 1.02 (0.83-1.09) 04/28/20 21:30 Problem List - Problems (1) Atrophic kidney Code(s): N26.1 - ATROPHY OF KIDNEY (TERMINAL) (2) Fall Code(s): W19.XXXA - UNSPECIFIED FALL, INITIAL ENCOUNTER (3) HLD (hyperlipidemia) Code(s): E78.5 - HYPERLIPIDEMIA, UNSPECIFIED (4) HTN (hypertension) Code(s): I10 - ESSENTIAL (PRIMARY) HYPERTENSION (5) Hydronephrosis Code(s): N13.30 - UNSPECIFIED HYDRONEPHROSIS (6) Leukocytosis Code(s): D72.829 - ELEVATED WHITE BLOOD CELL COUNT, UNSPECIFIED (7) Dementia Code(s): F03.90 - UNSPECIFIED DEMENTIA WITHOUT BEHAVIORAL DISTURBANCE (8) Sepsis Code(s): A41.9 - SEPSIS, UNSPECIFIED ORGANISM Assessment/Plan Pt had ambulated with PT Pt still has Rt knee stiff and back pain
[2020-05-01] MEDS ORDERED: amLODIPine BESYLATE 5 MG TABLET (FP) PO ONE (19:30)
[2020-05-02 08:15] LABS: ALBUMIN 2.5 g/dl (3.4-5.0); BILIRUBIN,DIRECT 0.2 mg/dL (0.0-0.2); BILIRUBIN,TOTAL 0.6 mg/dL (0.2-1); TOT PROT 5.9 g/dl (6.4-8.2)
[2020-05-02] MEDS ORDERED: cefTRIAXone SODIUM 1 GM VIAL ONE (09:23)
[2020-05-02] MEDS ORDERED: DEXTROSE 5%-WATER - 50 ML IVPB ONE (09:23)
[2020-05-02] MEDS ORDERED: PNEUMOC 13-VAL CONJ-DIP CRM/PF 0.5 ML DISP.SYRIN IM ONE (10:00)
[2020-05-02] MEDS: CEFTRIAXONE 1 GM in DEXTROSE 5%-WATER - 50 ML IVPB SCH (13:05)
--- NOTE | 2020-05-02 13:22 | PN ---
Progress Note, Physician History of Present Illness: Today had bedside meeting with Patient and Daughter Discussed about Bladder tumor Pt and daughter has to make decision. Pt Has pain and stffness of Rt Knee Jt not able to bend Rt knee we will have MRI of Rt Knee ortho reeval - Current Medication List Current Medications: Active Medications Ceftriaxone Sodium 1 gm/ (Dextrose) 50 mls @ 100 mls/hr IVPB DAILY GAL; Protocol Last Admin: 05/02/20 13:05 Dose: 100 mls/hr Documented by: - Objective Vital Signs: Vital Signs Temperature 97.9 F 05/02/20 09:30 Pulse Rate 59 L 05/02/20 09:30 Respiratory Rate 19 05/02/20 09:30 Blood Pressure 142/62 05/02/20 09:30 O2 Sat by Pulse Oximetry (%) 98 05/02/20 09:00 Labs: CBC, BMP 05/01/20 05:37 05/01/20 05:37 INR, PTT INR 1.02 (0.83-1.09) 04/28/20 21:30 Problem List - Problems (1) Atrophic kidney Code(s): N26.1 - ATROPHY OF KIDNEY (TERMINAL) (2) Fall Code(s): W19.XXXA - UNSPECIFIED FALL, INITIAL ENCOUNTER (3) HLD (hyperlipidemia) Code(s): E78.5 - HYPERLIPIDEMIA, UNSPECIFIED (4) HTN (hypertension) Code(s): I10 - ESSENTIAL (PRIMARY) HYPERTENSION (5) Hydronephrosis Code(s): N13.30 - UNSPECIFIED HYDRONEPHROSIS (6) Leukocytosis Code(s): D72.829 - ELEVATED WHITE BLOOD CELL COUNT, UNSPECIFIED (7) Dementia Code(s): F03.90 - UNSPECIFIED DEMENTIA WITHOUT BEHAVIORAL DISTURBANCE (8) Sepsis Code(s): A41.9 - SEPSIS, UNSPECIFIED ORGANISM
--- NOTE | 2020-05-02 14:24 | CON.NEURO ---
Consult - Past Medical History [employer]: Yes: Dementia Cardio/Vascular: Yes: HTN Hepatobiliary: Yes: Cholelithiasis, Choledocholithiasis (transient in 2006 - had MRCP that cleared the CBD) Renal/: Yes: Renal Calculi, UTI - Past Surgical History Past Surgical History: Yes: Breast Biopsy (benign left lumpectomy) Additional Surgical History: surgery for narrow angle glaucoma. D&C. s/p benign left lumpectomy - Alcohol/Substance Use Hx Alcohol Use: No - Smoking History Smoking history: Former smoker Have you smoked in the past 12 months: No If you are a former smoker, when did you quit?: 40YRS AGO Home Medications - Allergies Allergies/Adverse Reactions: Allergies Allergy/AdvReac Type Severity Reaction Status Date / Time No Known Drug Allergies Allergy Verified 04/28/20 20:46 - Home Medications Home Medications: Ambulatory Orders Aspirin [ASA -] 81 mg PO DAILY #0 tab.chew 09/06/13 Simvastatin [Zocor -] 10 mg PO HS #0 tablet 09/06/13 Acetaminophen [Tylenol .Regular Strength -] 650 mg PO Q4H PRN 04/03/14 Amlodipine Besylate [Norvasc -] 2.5 mg PO DAILY 04/30/20 Folic Acid 1 mg PO DAILY 04/30/20 Risedronate Sodium [Actonel] 150 mg PO MONTHLY 04/30/20 Physical Exam-Neuro Vital Signs: Vital Signs Temperature 97.9 F 05/02/20 14:08 Pulse Rate 71 05/02/20 14:08 Respiratory Rate 18 05/02/20 14:08 Blood Pressure 159/72 05/02/20 14:08 O2 Sat by Pulse Oximetry (%) 98 05/02/20 09:00 Labs: CBC, BMP 05/01/20 05:37 05/01/20 05:37 INR, PTT INR 1.02 (0.83-1.09) 04/28/20 21:30 Assessment/Plan CC Memory difficulties HPI 85 Year old female history of HTN,HLD. Patient came to hospital for fall, difficulty walking around. Patient was tring to get something and she fell on to the floor. Patient has small nasal bone fracture and L2 transverse process fracture. Patient is feeling better, she has been mildly confused, in terms of not able to remember what date is this. Otherwise she is able to give comprehensive history. Her ct ehad is normal Her son recently of cancer. (1) Head CT- neg ICH (2) C Spine CT- neg fx or subluxation (3) Facial Bones CT- no acute orbital, nasal bone, zygomatic arch or madibular fx (4) Lumbar CT- Fx at the tip of R- L2 transverse process. There is otherwise no evidence of lumbar spine acute fx or subluxation (5) Chest CT- Acute mildly displaced right transverse process fx. No other acute fx or dislocation or traumatic subluxation. Severe left hydronephrosis Cholelithiasis with GBW thickening, pericholecystic fluid suspicious for acute cholecystitis and a malignant mass in the gallbladder wall cannot be excluded PAST MEDICAL HISTORY: HTN HLD PAST SURGICAL HISTORY: Social History: Smoking: Never Alcohol: None Drugs: None Lives alone, recently , ambulates with cane, family assists with grocery shopping Allergies No Known Drug Allergies Allergy (Verified 04/28/20 20:46) HOME MEDICATIONS: Home Medications Medication Instructions Recorded Aspirin [ASA -] 81 mg PO DAILY #0 tab.chew 09/06/13 Simvastatin [Zocor -] 10 mg PO HS #0 tablet 09/06/13 Acetaminophen [Tylenol .Regular 650 mg PO Q4H PRN 04/03/14 Strength -] ROS,FH,SH reviewed in chart Neurological examination Alert oriented x 2, able to tell month and year, neck is supple speech is normal, eomi, pupils reactive no face asymmetry moving all ext sensation is normal gait is not tested ct head and ct c spine reviewed Assessment/Plan Mild Cognitive impairement ( MCI) , Secondary to mild stressor and hospitalization, Plan: 1. b12,folate tsh 2. no need for medication or mri of brain at this time follow up outpatient THanking you so much Adair Guillory MD
--- NOTE | 2020-05-02 20:34 | PN.GI ---
GI Progress Note Subjective: GI Note: I reviewed the CT, MRI and Hida scan with Dr. Hernandez. The GB is impaled into the liver bed suggesting previous cholecystitis or malignancy. I have explained this to Liliana and with her daughter and advised surgery. I explained that this may involve surgery on the liver as well. They want to think about it. Dr. Cordoba took part in this conversation. I did advised that the surgery be done at a tertiary care. - Objective Vital Signs: Vital Signs Temperature 98.3 F 05/02/20 18:00 Pulse Rate 63 05/02/20 18:00 Respiratory Rate 18 05/02/20 18:00 Blood Pressure 132/63 05/02/20 18:00 O2 Sat by Pulse Oximetry (%) 98 05/02/20 09:00 Laboratory Tests 05/01/20 05/02/20 05:37 06:00 C-Reactive Protein 3.7 H CA 19-9 Antigen Pending Constitutional: Calm Eyes: Yes: Conjunctiva Clear ...Auscultate: Yes: Normoactive Bowel Sounds ...Palpate: Yes: Soft, Other Labs: CBC, BMP 05/01/20 05:37 05/01/20 05:37 INR, PTT INR 1.02 (0.83-1.09) 04/28/20 21:30 Assessment/Plan Impression: -- Suspcious GB imaging, Liliana denies ever having had any pain to suggest any bouts with cholecystitis that would explain the GB being impaled into the liver and therefore a GB malignancy is suspected Plan: -- Surgical evaluation at a tertiary care center has been advised. While there EUS may play a role in making such a decision. I await Liliana's decision. Discussed with Dr Cordoba who is in agreement Problem List - Problems (1) Abnormal findings on diagnostic imaging of gall bladder Code(s): R93.2 - ABNORMAL FINDINGS ON DX IMAGING OF LIVER AND BILIARY TRACT (2) Cholelithiasis Code(s): K80.20 - CALCULUS OF GALLBLADDER W/O CHOLECYSTITIS W/O OBSTRUCTION (3) Head trauma Code(s): S09.90XA - UNSPECIFIED INJURY OF HEAD, INITIAL ENCOUNTER (4) Narrow angle glaucoma of right eye Code(s): H40.20X0 - UNSP PRIMARY ANGLE-CLOSURE GLAUCOMA, STAGE UNSPECIFIED (5) Dementia Code(s): F03.90 - UNSPECIFIED DEMENTIA WITHOUT BEHAVIORAL DISTURBANCE (6) HLD (hyperlipidemia) Code(s): E78.5 - HYPERLIPIDEMIA, UNSPECIFIED (7) HTN (hypertension) Code(s): I10 - ESSENTIAL (PRIMARY) HYPERTENSION (8) Hydronephrosis Code(s): N13.30 - UNSPECIFIED HYDRONEPHROSIS (9) Person under investigation for COVID-19 Code(s): Z20.828 - CONTACT W AND EXPOSURE TO OTH VIRAL COMMUNICABLE DISEASES (10) Rhabdomyolysis Code(s): M62.82 - RHABDOMYOLYSIS
[2020-05-03] MEDS ORDERED: ACETAMINOPHEN 325 MG TABLET (FP) PO PRN (06:21)
[2020-05-03 06:37] LABS: BASO % 0.7 % (0-2.0); HEMOGLOBIN 12.7 GM/dL (10.7-15.3); LYMPH % 16.6 % (8-40); MCH 30.1 pg (25.7-33.7); MCHC 32.6 g/dl (32.0-36.0); MEAN CELL VOLUME 92.3 fl (80-96); MEAN PLT VOLUME 9.7 fl (7.5-11.1); MONO % 9.9 % (3.8-10.2); NEUT % 65.8 % (42.8-82.8); PLATELET COUNT 223 K/MM3 (134-434); RBC 4.22 M/mm3 (3.60-5.2); WHITE BLOOD COUNT 8.1 K/mm3 (4.0-10.0)
[2020-05-03 07:03] LABS: BLOOD UREA NITROGEN 15.3 mg/dL (7-18); CALCIUM 8.3 mg/dL (8.5-10.1); CREATININE 0.9 mg/dL (0.55-1.3); POTASSIUM 3.7 mmol/L (3.5-5.1)
[2020-05-03] MEDS ORDERED: cefTRIAXone SODIUM 1 GM VIAL ONE (08:54)
[2020-05-03] MEDS ORDERED: DEXTROSE 5%-WATER - 50 ML IVPB ONE (08:54)
[2020-05-03] MEDS: CEFTRIAXONE 1 GM in DEXTROSE 5%-WATER - 50 ML IVPB SCH (09:06)
--- NOTE | 2020-05-03 11:45 | PN ---
Progress Note (short form) - Note Progress Note: HPI 85 Year old female history of HTN,HLD. Patient came to hospital for fall, difficulty walking around. Patient was tring to get something and she fell on to the floor. Patient has small nasal bone fracture and L2 transverse process fracture. Patient is feeling better, she has been mildly confused, in terms of not able to remember what date is this. Otherwise she is able to give comprehensive history. Her ct ehad is normal Patient is feeling better, no new complain, b12,foalate tsh pending Neurological examination Alert oriented x 2, able to tell month and year, neck is supple speech is normal, eomi, pupils reactive no face asymmetry moving all ext sensation is normal gait is not tested ct head and ct c spine reviewed Assessment/Plan Mild Cognitive impairement ( MCI) , Secondary to mild stressor and hospitalization, Plan: 1. b12,folate tsh pending 2. no need for medication or mri of brain at this time follow up outpatient THanking you so much Adair Guillory MD
--- NOTE | 2020-05-03 17:48 | PN ---
Progress Note, Physician History of Present Illness: Pt having pain and Rt Knee stiffness Pt is not able to Ambulate Pt needs MRI of Rt Knee spoke with ortho PA today Alex Fischer No Fever Neurology and GI FU noted - Current Medication List Current Medications: Active Medications Acetaminophen (Tylenol -) 650 mg PO Q6H PRN PRN Reason: PAIN LEVEL 1-10 Ceftriaxone Sodium 1 gm/ (Dextrose) 50 mls @ 100 mls/hr IVPB DAILY GAL; Protocol Last Admin: 05/03/20 09:06 Dose: 100 mls/hr Documented by: - Objective Vital Signs: Vital Signs Temperature 97.8 F 05/03/20 14:00 Pulse Rate 64 05/03/20 14:00 Respiratory Rate 18 05/03/20 14:00 Blood Pressure 147/60 05/03/20 14:00 O2 Sat by Pulse Oximetry (%) 97 05/03/20 09:00 Constitutional: Yes: No Distress Eyes: Yes: Conjunctiva Clear HENT: Yes: Atraumatic, Normocephalic Neck: Yes: Supple, Trachea Midline Cardiovascular: Yes: Regular Rate and Rhythm, S1, S2 Respiratory: Yes: Regular, CTA Bilaterally Gastrointestinal: Yes: Normal Bowel Sounds, Soft Musculoskeletal: Yes: Joint Stiffness (Rt knee stiffness) Labs: CBC, BMP 05/03/20 05:20 05/03/20 05:20 INR, PTT INR 1.02 (0.83-1.09) 04/28/20 21:30 Problem List - Problems (1) Atrophic kidney Code(s): N26.1 - ATROPHY OF KIDNEY (TERMINAL) (2) Fall Code(s): W19.XXXA - UNSPECIFIED FALL, INITIAL ENCOUNTER (3) HLD (hyperlipidemia) Code(s): E78.5 - HYPERLIPIDEMIA, UNSPECIFIED (4) HTN (hypertension) Code(s): I10 - ESSENTIAL (PRIMARY) HYPERTENSION (5) Hydronephrosis Code(s): N13.30 - UNSPECIFIED HYDRONEPHROSIS (6) Leukocytosis Code(s): D72.829 - ELEVATED WHITE BLOOD CELL COUNT, UNSPECIFIED (7) Dementia Code(s): F03.90 - UNSPECIFIED DEMENTIA WITHOUT BEHAVIORAL DISTURBANCE (8) Sepsis Code(s): A41.9 - SEPSIS, UNSPECIFIED ORGANISM (9) UTI (urinary tract infection) Code(s): N39.0 - URINARY TRACT INFECTION, SITE NOT SPECIFIED
[2020-05-03] MEDS: amLODIPine BESYLATE 2.5 MG TABLET (FP) PO SCH (18:18)
--- NOTE | 2020-05-03 18:18 | PN.GI ---
GI Progress Note Subjective: GI NOte: Liliana has not made a decision re: GB surgery but has forgotten major points that I discussed with her. Her son arrived and told me that he does not feel that his mother is competent - Objective Vital Signs: Vital Signs Temperature 97.8 F 05/03/20 14:00 Pulse Rate 64 05/03/20 14:00 Respiratory Rate 18 05/03/20 14:00 Blood Pressure 147/60 05/03/20 14:00 O2 Sat by Pulse Oximetry (%) 97 05/03/20 09:00 Constitutional: No Distress ...Auscultate: Yes: Normoactive Bowel Sounds ...Palpate: Yes: Soft, Other (nontender) Labs: CBC, BMP 05/03/20 05:20 05/03/20 05:20 INR, PTT INR 1.02 (0.83-1.09) 04/28/20 21:30 Assessment/Plan Impression: -- Suspcious GB imaging, Liliana denies ever having had any pain to suggest any bouts with cholecystitis that would explain the GB being impaled into the liver and therefore a GB malignancy is suspected Plan: -- Surgical evaluation at a tertiary care center has been advised. While there EUS may play a role in making such a decision. I await Liliana's decision. -- Need psych evaluation for competency [facility] Problem List - Problems (1) Abnormal findings on diagnostic imaging of gall bladder Code(s): R93.2 - ABNORMAL FINDINGS ON DX IMAGING OF LIVER AND BILIARY TRACT (2) Cholelithiasis Code(s): K80.20 - CALCULUS OF GALLBLADDER W/O CHOLECYSTITIS W/O OBSTRUCTION (3) Head trauma Code(s): S09.90XA - UNSPECIFIED INJURY OF HEAD, INITIAL ENCOUNTER (4) Narrow angle glaucoma of right eye Code(s): H40.20X0 - UNSP PRIMARY ANGLE-CLOSURE GLAUCOMA, STAGE UNSPECIFIED (5) Dementia Code(s): F03.90 - UNSPECIFIED DEMENTIA WITHOUT BEHAVIORAL DISTURBANCE (6) HLD (hyperlipidemia) Code(s): E78.5 - HYPERLIPIDEMIA, UNSPECIFIED (7) HTN (hypertension) Code(s): I10 - ESSENTIAL (PRIMARY) HYPERTENSION (8) Hydronephrosis Code(s): N13.30 - UNSPECIFIED HYDRONEPHROSIS (9) Person under investigation for COVID-19 Code(s): Z20.828 - CONTACT W AND EXPOSURE TO OTH VIRAL COMMUNICABLE DISEASES (10) Rhabdomyolysis Code(s): M62.82 - RHABDOMYOLYSIS
--- NOTE | 2020-05-03 21:55 | PN ---
Mental Health Exam - Mental Status Exam Alert and Oriented to: Place (alert and orientated by 3, confused if wednesday/ wednesday only. ), Person Cognitive Function: Grossly Intact Patient Appearance: Well Groomed Mood: Hopeful Affect: Appropriate Patient Behavior: Passive, Cooperative Speech Pattern: Clear Voice Loudness: Mildly Soft/Quiet Thought Process: Intact Thought Disorder: Not Present Hallucinations: None, Denies Suicidal Ideation: None Homicidal Ideation: None Insight/Judgement: Poor Sleep: Fair Appetite: Fair Muscle strength/Tone: Mild Hypotonicity Gait/Station: Deferred Additional Comments: 85 yo female psych consult called for Competancy. Initially came [facility] after a [facility]. Gave a comphrehensive history on 05/[address] Guillory. Client was refusing meds in past, at home. Client completed proverbs, has sence of Humour with smiling affect, making rapport with science writer. Spoke with night ESTELLE Cevallos on the unit also. Impression;. She is competent to make own descisions. She agreed to have her daughter as her Health Care Proxy.
[2020-05-04] MEDS ORDERED: cefTRIAXone SODIUM 1 GM VIAL ONE (08:34)
[2020-05-04] MEDS ORDERED: DEXTROSE 5%-WATER - 50 ML IVPB ONE (08:35)
[2020-05-04] MEDS: amLODIPine BESYLATE 2.5 MG TABLET (FP) PO SCH (09:08)
[2020-05-04] MEDS: CEFTRIAXONE 1 GM in DEXTROSE 5%-WATER - 50 ML IVPB SCH (09:08)
--- NOTE | 2020-05-04 09:48 | PN ---
Progress Note (short form) - Note Progress Note: Pt continues to deny any GI symptoms. Liver chemistries are normal along with Ca-19-9. She was again found to be competent to make her own medical decisions. I spoke to her and explained that the GB is suspicious for early malignancy on the MRI done here. I explained that all we are suggesting is that she have further evaluation to decide whether this suspicion is justified, and if so, what should be done. I emphasized that if this is a cancer and she waits for symptoms then it may be too late to have curative surgery.
--- NOTE | 2020-05-04 11:58 | PN ---
Progress Note, Physician History of Present Illness: Pt is having stiill Rt Knee pain Discussed with Ortho Yesterday waiting to be evaluated No Fever GI Fu noted Psych eval noted we will Have CT or MRI of Rt Knee R/O Any meniscaal tear/Effusion - Current Medication List Current Medications: Active Medications Acetaminophen (Tylenol -) 650 mg PO Q6H PRN PRN Reason: PAIN LEVEL 1-10 Amlodipine Besylate (Norvasc -) 2.5 mg PO DAILY GAL Last Admin: 05/04/20 09:08 Dose: 2.5 mg Documented by: Ceftriaxone Sodium 1 gm/ (Dextrose) 50 mls @ 100 mls/hr IVPB DAILY GAL; Protocol Last Admin: 05/04/20 09:08 Dose: 100 mls/hr Documented by: - Objective Vital Signs: Vital Signs Temperature 98.2 F 05/04/20 09:41 Pulse Rate 61 05/04/20 09:41 Respiratory Rate 18 05/04/20 09:41 Blood Pressure 151/75 05/04/20 09:41 O2 Sat by Pulse Oximetry (%) 96 05/04/20 09:00 Constitutional: Yes: No Distress Eyes: Yes: Conjunctiva Clear, EOM Intact HENT: Yes: Atraumatic, Normocephalic Neck: Yes: Supple, Trachea Midline Cardiovascular: Yes: Regular Rate and Rhythm, S1, S2 Respiratory: Yes: Regular, CTA Bilaterally Gastrointestinal: Yes: Normal Bowel Sounds, Soft Musculoskeletal: Yes: Joint Stiffness Edema: No Peripheral Pulses WNL: Yes Labs: CBC, BMP 05/03/20 05:20 05/03/20 05:20 INR, PTT INR 1.02 (0.83-1.09) 04/28/20 21:30 Problem List - Problems (1) Atrophic kidney Code(s): N26.1 - ATROPHY OF KIDNEY (TERMINAL) (2) Fall Code(s): W19.XXXA - UNSPECIFIED FALL, INITIAL ENCOUNTER (3) HLD (hyperlipidemia) Code(s): E78.5 - HYPERLIPIDEMIA, UNSPECIFIED (4) HTN (hypertension) Code(s): I10 - ESSENTIAL (PRIMARY) HYPERTENSION (5) Hydronephrosis Code(s): N13.30 - UNSPECIFIED HYDRONEPHROSIS (6) Leukocytosis Code(s): D72.829 - ELEVATED WHITE BLOOD CELL COUNT, UNSPECIFIED (7) Dementia Code(s): F03.90 - UNSPECIFIED DEMENTIA WITHOUT BEHAVIORAL DISTURBANCE (8) Sepsis Code(s): A41.9 - SEPSIS, UNSPECIFIED ORGANISM (9) UTI (urinary tract infection) Code(s): N39.0 - URINARY TRACT INFECTION, SITE NOT SPECIFIED Assessment/Plan Pt had ambulated with PT Pt still has Rt knee stiff and back pain Pt will have CT/MRI
--- NOTE | 2020-05-04 13:12 | PN ---
Progress Note (short form) - Note Progress Note: Ortho Pt seen and examined. Pt c/o pain in her right knee. As per pt she has had a history of right knee issues. She has seen physicians in the past for it. Denies any recent evals. She c/o pain and stiffness. She has been able to ambulate with a walker during PT without much difficulty. Her LS spine is also feeling better. Selected Entries 05/04/20 09:41 Temperature 98.2 F Pulse Rate 61 Respiratory 18 Rate Blood Pressure 151/75 right knee- mild swelling medially, minimal effusion, valgus deformity, + ttp medailly, active rom 0-30, passive can flex to 60, able to actively extend knee and hold a SLR, calf soft, nt, nvi a/p -right knee djd s/p fall MRI has been ordered by Dr. Berrios If neg for fracture or acute pathology, would recommend cortisone injection Continue PT, wbat analgesics prn will follow d/w Dr. Love
[2020-05-05] MEDS ORDERED: cefTRIAXone SODIUM 1 GM VIAL ONE (09:29)
[2020-05-05] MEDS ORDERED: DEXTROSE 5%-WATER - 50 ML IVPB ONE (09:29)
[2020-05-05] MEDS: CEFTRIAXONE 1 GM in DEXTROSE 5%-WATER - 50 ML IVPB SCH (09:46)
[2020-05-05] MEDS: amLODIPine BESYLATE 2.5 MG TABLET (FP) PO SCH (09:47)
--- NOTE | 2020-05-05 11:57 | PN ---
Progress Note (short form) - Note Progress Note: 85 Year old female history of HTN,HLD. Patient came to hospital for fall, difficulty walking around. Patient was tring to get something and she fell on to the floor. Patient has small nasal bone fracture and L2 transverse process fracture. Patient is feeling better, she has been mildly confused, in terms of not able to remember what date is this. Otherwise she is able to give comprehensive history. Her ct ehad is normal Patient is feeling better, complain of knee pain and had pt. patient was seen yeterday b12 was slghtly low , 285 Neurological examination Alert oriented x 2, able to tell month and year, neck is supple speech is normal, eomi, pupils reactive no face asymmetry moving all ext sensation is normal gait is not tested ct head and ct c spine reviewed Assessment/Plan Mild Cognitive impairement ( MCI) , Secondary to mild stressor and hospitalization, Plan: 1. b12 was below normal, b12 supplementation 2. no need for medication or mri of brain at this time follow up outpatient THanking you so much Adair Guillory MD
[2020-05-05] MEDS: CYANOCOBALAMIN (VITAMIN B-12) 1000 MCG/1 ML VIAL IM SCH (13:07)
--- NOTE | 2020-05-05 20:19 | PN ---
Progress Note, Physician History of Present Illness: Pt is waiting for MRI Rt Knee Pt still has stiffness of Rt Knee No Fever No SOB No chest pain No Palpitations No GI bleeding - Current Medication List Current Medications: Active Medications Acetaminophen (Tylenol -) 650 mg PO Q6H PRN PRN Reason: PAIN LEVEL 1-10 Amlodipine Besylate (Norvasc -) 2.5 mg PO DAILY GAL Last Admin: 05/05/20 09:47 Dose: 2.5 mg Documented by: Cyanocobalamin (Vitamin B12 Injection -) 1,000 mcg IM DAILY GAL Last Admin: 05/05/20 13:07 Dose: 1,000 mcg Documented by: Ceftriaxone Sodium 1 gm/ (Dextrose) 50 mls @ 100 mls/hr IVPB DAILY GAL; Protocol Last Admin: 05/05/20 09:46 Dose: 100 mls/hr Documented by: - Objective Vital Signs: Vital Signs Temperature 98.1 F 05/05/20 18:00 Pulse Rate 65 05/05/20 18:00 Respiratory Rate 16 05/05/20 18:00 Blood Pressure 139/60 05/05/20 18:00 O2 Sat by Pulse Oximetry (%) 95 05/05/20 09:00 Constitutional: Yes: Calm Eyes: Yes: Conjunctiva Clear, EOM Intact HENT: Yes: Atraumatic, Normocephalic Neck: Yes: Supple, Trachea Midline Cardiovascular: Yes: Regular Rate and Rhythm, S1, S2 Respiratory: Yes: Regular, CTA Bilaterally Gastrointestinal: Yes: Normal Bowel Sounds, Soft Musculoskeletal: Yes: Joint Stiffness (Rt Knee) Edema: No Peripheral Pulses WNL: Yes Neurological: Yes: Alert, Oriented, Cran Nerves II-XII Intact Labs: CBC, BMP 05/03/20 05:20 05/03/20 05:20 INR, PTT INR 1.02 (0.83-1.09) 04/28/20 21:30 Problem List - Problems (1) Atrophic kidney Code(s): N26.1 - ATROPHY OF KIDNEY (TERMINAL) (2) Fall Code(s): W19.XXXA - UNSPECIFIED FALL, INITIAL ENCOUNTER (3) HLD (hyperlipidemia) Code(s): E78.5 - HYPERLIPIDEMIA, UNSPECIFIED (4) HTN (hypertension) Code(s): I10 - ESSENTIAL (PRIMARY) HYPERTENSION (5) Hydronephrosis Code(s): N13.30 - UNSPECIFIED HYDRONEPHROSIS (6) Leukocytosis Code(s): D72.829 - ELEVATED WHITE BLOOD CELL COUNT, UNSPECIFIED (7) Dementia Code(s): F03.90 - UNSPECIFIED DEMENTIA WITHOUT BEHAVIORAL DISTURBANCE (8) Sepsis Code(s): A41.9 - SEPSIS, UNSPECIFIED ORGANISM (9) UTI (urinary tract infection) Code(s): N39.0 - URINARY TRACT INFECTION, SITE NOT SPECIFIED Assessment/Plan Pt had ambulated with PT Pt still has Rt knee stiff and back pain Rt Knee MRI not done yet
--- NOTE | 2020-05-06 07:48 | PN.GI ---
GI Progress Note - Objective Vital Signs: Vital Signs Temperature 98.5 F 05/06/20 06:00 Pulse Rate 67 05/06/20 06:00 Respiratory Rate 18 05/06/20 06:00 Blood Pressure 118/61 05/06/20 06:00 O2 Sat by Pulse Oximetry (%) 96 05/05/20 21:00 Labs: CBC, BMP 05/03/20 05:20 05/03/20 05:20 INR, PTT INR 1.02 (0.83-1.09) 04/28/20 21:30
[2020-05-06] MEDS ORDERED: DEXTROSE 5%-WATER - 50 ML IVPB ONE (09:16)
[2020-05-06] MEDS ORDERED: cefTRIAXone SODIUM 1 GM VIAL ONE (09:16)
[2020-05-06] MEDS: amLODIPine BESYLATE 2.5 MG TABLET (FP) PO SCH (09:23)
[2020-05-06] MEDS: CEFTRIAXONE 1 GM in DEXTROSE 5%-WATER - 50 ML IVPB SCH (09:24)
[2020-05-06] MEDS: CYANOCOBALAMIN (VITAMIN B-12) 1000 MCG/1 ML VIAL IM SCH (09:24)
--- NOTE | 2020-05-06 09:40 | PN ---
Progress Note (short form) - Note Progress Note: 85 Year old female history of HTN,HLD. Patient came to hospital for fall, difficulty walking around. Patient was tring to get something and she fell on to the floor. Patient has small nasal bone fracture and L2 transverse process fracture. Patient is feeling better, she has been mildly confused, in terms of not able to remember what date is this. Otherwise she is able to give comprehensive history. Her ct ehad is normal Patient is feeling better, complain of knee pain and had pt. patient was seen yeterday b12 was slghtly low , 285, no new complain Neurological examination Alert oriented x 2, able to tell month and year, neck is supple speech is normal, eomi, pupils reactive no face asymmetry moving all ext sensation is normal gait is not tested ct head and ct c spine reviewed Assessment/Plan Mild Cognitive impairement ( MCI) , Secondary to mild stressor and hospitalization, Plan: 1. b12 was below normal, b12 supplementation follow up outpatient THanking you so much Adair Guillory MD
--- NOTE | 2020-05-06 12:23 | PN ---
Progress Note (short form) - Note Progress Note: Ortho Pt still awaiting MRI. Dr. Kwok recommends getting xrays in meantime. Will order and f/u once MRI and xrays are performed for further Ortho recs.
--- NOTE | 2020-05-06 14:58 | PN.GI ---
GI Progress Note Subjective: GI NOte: Liliana shrugged her shoulders when I asked whether or not she has opted for GB investigation and surgery at a tertiary care center. When I asked whether she recalled our previous conversations she again shrugged - Objective Vital Signs: Vital Signs Temperature 97.5 F L 05/06/20 09:19 Pulse Rate 59 L 05/06/20 09:19 Respiratory Rate 16 05/06/20 09:19 Blood Pressure 133/58 L 05/06/20 09:19 O2 Sat by Pulse Oximetry (%) 95 05/06/20 09:00 Laboratory Tests 05/01/20 05/02/20 05:37 06:00 Total Bilirubin 0.6 C-Reactive Protein 3.7 H Laboratory Tests 05/02/20 06:00 CA 19-9 Antigen 34 Constitutional: Calm ...Auscultate: Yes: Normoactive Bowel Sounds ...Palpate: Yes: Soft, Other (nontender) Labs: CBC, BMP 05/03/20 05:20 05/03/20 05:20 INR, PTT INR 1.02 (0.83-1.09) 04/28/20 21:30 Assessment/Plan Impression: -- Suspicious GB imaging, with GB being impaled into the liver a GB malignancy is suspected Plan: -- Surgical evaluation at a tertiary care center has been again advised. While there EUS may play a role in making such a decision. I agree with her son that Liliana does not seem to comprehend enough so as to make this decision. -- Await psych evaluation for competency Problem List - Problems (1) Abnormal findings on diagnostic imaging of gall bladder Code(s): R93.2 - ABNORMAL FINDINGS ON DX IMAGING OF LIVER AND BILIARY TRACT (2) Cholelithiasis Code(s): K80.20 - CALCULUS OF GALLBLADDER W/O CHOLECYSTITIS W/O OBSTRUCTION (3) Head trauma Code(s): S09.90XA - UNSPECIFIED INJURY OF HEAD, INITIAL ENCOUNTER (4) Narrow angle glaucoma of right eye Code(s): H40.20X0 - UNSP PRIMARY ANGLE-CLOSURE GLAUCOMA, STAGE UNSPECIFIED (5) Dementia Code(s): F03.90 - UNSPECIFIED DEMENTIA WITHOUT BEHAVIORAL DISTURBANCE (6) HLD (hyperlipidemia) Code(s): E78.5 - HYPERLIPIDEMIA, UNSPECIFIED (7) HTN (hypertension) Code(s): I10 - ESSENTIAL (PRIMARY) HYPERTENSION (8) Hydronephrosis Code(s): N13.30 - UNSPECIFIED HYDRONEPHROSIS (9) Person under investigation for COVID-19 Code(s): Z20.828 - CONTACT W AND EXPOSURE TO OTH VIRAL COMMUNICABLE DISEASES (10) Rhabdomyolysis Code(s): M62.82 - RHABDOMYOLYSIS
--- NOTE | 2020-05-06 19:27 | PN ---
Progress Note, Physician History of Present Illness: Ortho and GI FU noted Pt still has Rt Knee Jt stiffness No Fever NO SOB No GI bleeding - Current Medication List Current Medications: Active Medications Acetaminophen (Tylenol -) 650 mg PO Q6H PRN PRN Reason: PAIN LEVEL 1-10 Amlodipine Besylate (Norvasc -) 2.5 mg PO DAILY [facility] Last Admin: 05/06/20 09:23 Dose: 2.5 mg Documented by: Cyanocobalamin (Vitamin B12 Injection -) 1,000 mcg IM DAILY [facility] Last Admin: 05/06/20 09:24 Dose: 1,000 mcg Documented by: Ceftriaxone Sodium 1 gm/ (Dextrose) 50 mls @ 100 mls/hr IVPB DAILY [facility]; Protocol Last Admin: 05/06/20 09:24 Dose: 100 mls/hr Documented by: - Objective Vital Signs: Vital Signs Temperature 98.6 F 05/06/20 14:00 Pulse Rate 67 05/06/20 14:00 Respiratory Rate 18 05/06/20 14:00 Blood Pressure 146/68 05/06/20 14:00 O2 Sat by Pulse Oximetry (%) 95 05/06/20 09:00 Constitutional: Yes: No Distress Eyes: Yes: Conjunctiva Clear, EOM Intact HENT: Yes: Atraumatic, Normocephalic Neck: Yes: Supple, Trachea Midline Cardiovascular: Yes: Regular Rate and Rhythm, S1, S2 Respiratory: Yes: Regular, CTA Bilaterally Gastrointestinal: Yes: Normal Bowel Sounds, Soft Musculoskeletal: Yes: Joint Stiffness (Rt Knee stiffness) Labs: CBC, BMP 05/03/20 05:20 05/03/20 05:20 INR, PTT INR 1.02 (0.83-1.09) 04/28/20 21:30 Problem List - Problems (1) Atrophic kidney Code(s): N26.1 - ATROPHY OF KIDNEY (TERMINAL) (2) Fall Code(s): W19.XXXA - UNSPECIFIED FALL, INITIAL ENCOUNTER (3) HLD (hyperlipidemia) Code(s): E78.5 - HYPERLIPIDEMIA, UNSPECIFIED (4) HTN (hypertension) Code(s): I10 - ESSENTIAL (PRIMARY) HYPERTENSION (5) Hydronephrosis Code(s): N13.30 - UNSPECIFIED HYDRONEPHROSIS (6) Leukocytosis Code(s): D72.829 - ELEVATED WHITE BLOOD CELL COUNT, UNSPECIFIED (7) Dementia Code(s): F03.90 - UNSPECIFIED DEMENTIA WITHOUT BEHAVIORAL DISTURBANCE (8) Sepsis Code(s): A41.9 - SEPSIS, UNSPECIFIED ORGANISM (9) UTI (urinary tract infection) Code(s): N39.0 - URINARY TRACT INFECTION, SITE NOT SPECIFIED
[2020-05-06] MEDS: FOLIC ACID 1 MG TABLET (FP) PO SCH (21:01)
[2020-05-07 06:37] LABS: BASO % 0.8 % (0-2.0); EOS % 6.7 % (0-4.5); HEMATOCRIT 38.5 % (32.4-45.2); HEMOGLOBIN 12.6 GM/dL (10.7-15.3); MCH 30.4 pg (25.7-33.7); MCHC 32.8 g/dl (32.0-36.0); MEAN CELL VOLUME 92.6 fl (80-96); MEAN PLT VOLUME 9.6 fl (7.5-11.1); MONO % 10.4 % (3.8-10.2); NEUT % 65.1 % (42.8-82.8); PLATELET COUNT 234 K/MM3 (134-434); RBC 4.16 M/mm3 (3.60-5.2); RDW 14.2 % (11.6-15.6); WHITE BLOOD COUNT 8.6 K/mm3 (4.0-10.0)
[2020-05-07 07:06] LABS: ALBUMIN 2.5 g/dl (3.4-5.0); BILIRUBIN,DIRECT 0.1 mg/dL (0.0-0.2); BILIRUBIN,TOTAL 0.5 mg/dL (0.2-1)
[2020-05-07 07:07] LABS: BLOOD UREA NITROGEN 14.1 mg/dL (7-18); CALCIUM 8.3 mg/dL (8.5-10.1); CREATININE 0.9 mg/dL (0.55-1.3); POTASSIUM 3.8 mmol/L (3.5-5.1)
[2020-05-07] MEDS: FOLIC ACID 1 MG TABLET (FP) PO SCH (10:47)
[2020-05-07] MEDS: CYANOCOBALAMIN (VITAMIN B-12) 1000 MCG/1 ML VIAL IM SCH (10:48)
[2020-05-07] MEDS: amLODIPine BESYLATE 2.5 MG TABLET (FP) PO SCH (10:48)
--- NOTE | 2020-05-07 14:30 | PN ---
Progress Note (short form) - Note Progress Note: 85 Year old female history of HTN,HLD. Patient came to hospital for fall, difficulty walking around. Patient was tring to get something and she fell on to the floor. Patient has small nasal bone fracture and L2 transverse process fracture. Patient is feeling better, she has been mildly confused, in terms of not able to remember what date is this. Otherwise she is able to give comprehensive history. Her ct ehad is normal continue b12, and complain of right knee stiffness, no new neurological symptoms Neurological examination Alert oriented x 2, able to tell month and year, neck is supple speech is normal, eomi, pupils reactive no face asymmetry moving all ext sensation is normal gait is not tested ct head and ct c spine reviewed Assessment/Plan Mild Cognitive impairement ( MCI) , Secondary to mild stressor and hospitalization, Plan: 1. b12 was below normal, b12 supplementation follow up outpatient THanking you so much Adair Guillory MD
--- NOTE | 2020-05-07 23:11 | PN ---
Progress Note, Physician History of Present Illness: Pt was not FU by ortho MRI denied Wednesday spoke with Ortho PA He wants to give Rt Knee Intraorticular steroid not done Pt Knee she is not able to bend - Current Medication List Current Medications: Active Medications Acetaminophen (Tylenol -) 650 mg PO Q6H PRN PRN Reason: PAIN LEVEL 1-10 Amlodipine Besylate (Norvasc -) 2.5 mg PO DAILY [facility] Last Admin: 05/07/20 10:48 Dose: 2.5 mg Documented by: Cyanocobalamin (Vitamin B12 Injection -) 1,000 mcg IM DAILY [facility] Last Admin: 05/07/20 10:48 Dose: 1,000 mcg Documented by: Folic Acid (Folic Acid -) 1 mg PO DAILY [facility] Last Admin: 05/07/20 10:47 Dose: 1 mg Documented by: - Objective Vital Signs: Vital Signs Temperature 98.0 F 05/07/20 21:16 Pulse Rate 67 05/07/20 21:16 Respiratory Rate 15 05/07/20 21:16 Blood Pressure 127/64 05/07/20 21:16 O2 Sat by Pulse Oximetry (%) 96 05/07/20 21:16 Constitutional: Yes: Calm Eyes: Yes: Conjunctiva Clear, EOM Intact HENT: Yes: Atraumatic, Normocephalic Neck: Yes: Supple, Trachea Midline Cardiovascular: Yes: Regular Rate and Rhythm, S1, S2 Respiratory: Yes: Regular, CTA Bilaterally Gastrointestinal: Yes: Normal Bowel Sounds, Soft Musculoskeletal: Yes: Joint Stiffness (Rt knee) Edema: No Peripheral Pulses WNL: Yes Neurological: Yes: Alert, Oriented, Cran Nerves II-XII Intact Labs: CBC, BMP 05/07/20 05:28 05/07/20 05:28 INR, PTT INR 1.02 (0.83-1.09) 04/28/20 21:30 Problem List - Problems (1) Atrophic kidney Code(s): N26.1 - ATROPHY OF KIDNEY (TERMINAL) (2) Fall Code(s): W19.XXXA - UNSPECIFIED FALL, INITIAL ENCOUNTER (3) HLD (hyperlipidemia) Code(s): E78.5 - HYPERLIPIDEMIA, UNSPECIFIED (4) HTN (hypertension) Code(s): I10 - ESSENTIAL (PRIMARY) HYPERTENSION (5) Hydronephrosis Code(s): N13.30 - UNSPECIFIED HYDRONEPHROSIS (6) Leukocytosis Code(s): D72.829 - ELEVATED WHITE BLOOD CELL COUNT, UNSPECIFIED (7) Dementia Code(s): F03.90 - UNSPECIFIED DEMENTIA WITHOUT BEHAVIORAL DISTURBANCE (8) Sepsis Code(s): A41.9 - SEPSIS, UNSPECIFIED ORGANISM (9) UTI (urinary tract infection) Code(s): N39.0 - URINARY TRACT INFECTION, SITE NOT SPECIFIED Assessment/Plan Pt had ambulated with PT Pt still has Rt knee stiff and back pain Rt Knee MRI not done yet Denied awaiting Ortho F/U for intraarticular steroid
[2020-05-08] MEDS: amLODIPine BESYLATE 2.5 MG TABLET (FP) PO SCH (10:56)
[2020-05-08] MEDS: FOLIC ACID 1 MG TABLET (FP) PO SCH (10:56)
[2020-05-08] MEDS: CYANOCOBALAMIN (VITAMIN B-12) 1000 MCG/1 ML VIAL IM SCH (10:56)
--- NOTE | 2020-05-08 13:03 | PN ---
Progress Note (short form) - Note Progress Note: Ortho Pt seen and examined. MRI of right knee was denied. Selected Entries 05/08/20 10:00 Temperature 98.0 F Pulse Rate 56 L Respiratory 17 Rate Blood Pressure 142/59 L Laboratory Tests 05/07/20 05:28 WBC 8.6 Hgb 12.6 Hct 38.5 Plt Count 234 mild swelling, resolving ecchymosis, + ttp medially but improved, incr rom 2- 100, calf soft, nt nvi xrays show moderate medial compartment djd, no acute pathology a/p Consent obtained, under sterile technique the right knee was injected with lidocaine and depo-medrol, injection tolerated well Injection will take 48-72 hours for onset of pain relief ice, elevate PT, wbat will follow ok to d/c from ortho pov d/w Dr. Kwok
--- NOTE | 2020-05-08 19:20 | PN ---
Progress Note, Physician History of Present Illness: Pt was seen by Ortho and Pt MRI denied Pt had Rt Knee Jt Depomedrol Injection No Fever No SOB spoke with daughter [phone] and spoke with son floor Both wnt Pt to go to [facility] to take care of Glall Bladder Mass Spoke with GI Dr Hunter Pt will go to see Dr Lai Sorenson spoke with Conor [phone] community case manager. Pt willgo to PT after Eval at [facility]. and Regi agrees with it - Current Medication List Current Medications: Active Medications Acetaminophen (Tylenol -) 650 mg PO Q6H PRN PRN Reason: PAIN LEVEL 1-10 Amlodipine Besylate (Norvasc -) 2.5 mg PO DAILY [facility] Last Admin: 05/08/20 10:56 Dose: 2.5 mg Documented by: Cyanocobalamin (Vitamin B12 Injection -) 1,000 mcg IM DAILY [facility] Last Admin: 05/08/20 10:56 Dose: 1,000 mcg Documented by: Folic Acid (Folic Acid -) 1 mg PO DAILY [facility] Last Admin: 05/08/20 10:56 Dose: 1 mg Documented by: - Objective Vital Signs: Vital Signs Temperature 98.4 F 05/08/20 13:29 Pulse Rate 64 05/08/20 13:29 Respiratory Rate 15 05/08/20 13:29 Blood Pressure 116/72 05/08/20 13:29 O2 Sat by Pulse Oximetry (%) 97 05/08/20 12:03 Constitutional: Yes: No Distress Eyes: Yes: Conjunctiva Clear, EOM Intact HENT: Yes: Atraumatic, Normocephalic Neck: Yes: Supple, Trachea Midline Cardiovascular: Yes: Regular Rate and Rhythm, S1, S2 Respiratory: Yes: Regular, CTA Bilaterally Gastrointestinal: Yes: Normal Bowel Sounds, Soft Labs: CBC, BMP 05/07/20 05:28 05/07/20 05:28 INR, PTT INR 1.02 (0.83-1.09) 04/28/20 21:30 Problem List - Problems (1) Atrophic kidney Code(s): N26.1 - ATROPHY OF KIDNEY (TERMINAL) (2) Fall Code(s): W19.XXXA - UNSPECIFIED FALL, INITIAL ENCOUNTER (3) HLD (hyperlipidemia) Code(s): E78.5 - HYPERLIPIDEMIA, UNSPECIFIED (4) HTN (hypertension) Code(s): I10 - ESSENTIAL (PRIMARY) HYPERTENSION (5) Hydronephrosis Code(s): N13.30 - UNSPECIFIED HYDRONEPHROSIS (6) Leukocytosis Code(s): D72.829 - ELEVATED WHITE BLOOD CELL COUNT, UNSPECIFIED (7) Dementia Code(s): F03.90 - UNSPECIFIED DEMENTIA WITHOUT BEHAVIORAL DISTURBANCE (8) Sepsis Code(s): A41.9 - SEPSIS, UNSPECIFIED ORGANISM (9) UTI (urinary tract infection) Code(s): N39.0 - URINARY TRACT INFECTION, SITE NOT SPECIFIED Assessment/Plan Pt was seen by Ortho and Pt MRI denied Pt had Rt Knee Jt Depomedrol Injection No Fever No SOB spoke with daughter [phone] and spoke with son floor Both wnt Pt to go to [facility] to take care of Glall Bladder Mass Spoke with GI Dr Hunter Pt will go to see Dr Lai Sorenson spoke with Conor [phone] community case manager. Pt willgo to PT after Eval at [facility]. and Regi agrees with it
--- NOTE | 2020-05-08 19:22 | DS ---
Physical Examination Vital Signs: Vital Signs Temperature 98.4 F 05/08/20 13:29 Pulse Rate 64 05/08/20 13:29 Respiratory Rate 15 05/08/20 13:29 Blood Pressure 116/72 05/08/20 13:29 O2 Sat by Pulse Oximetry (%) 97 05/08/20 12:03 Constitutional: Yes: No Distress Eyes: Yes: Conjunctiva Clear HENT: Yes: Atraumatic, Normocephalic Neck: Yes: Supple, Trachea Midline Cardiovascular: Yes: Regular Rate and Rhythm, S1, S2 Respiratory: Yes: Regular, CTA Bilaterally Gastrointestinal: Yes: Normal Bowel Sounds, Soft Musculoskeletal: Yes: Joint Stiffness (Rt knee S/P Intraarticular Steroid Injection) Edema: No Peripheral Pulses WNL: Yes Labs: CBC, BMP 05/07/20 05:28 05/07/20 05:28 Discharge Summary Problems reviewed: Yes Reason For Visit: FALL Current Active Problems Abnormal findings on diagnostic imaging of gall bladder (Acute) Atrophic kidney (Acute) Cholelithiasis (Acute) Dementia (Acute) Fall (Acute) HLD (hyperlipidemia) (Acute) HTN (hypertension) (Acute) Head trauma (Acute) Hydronephrosis (Acute) Leukocytosis (Acute) 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 There is otherwise no evidence of lumbar spine acute fx or subluxation (5) Chest CT- Acute mildly displaced right transverse process fx. No other acute fx or dislocation or traumatic subluxation. Severe left hydronephrosis Cholelithiasis with GBW thickening, pericholecystic fluid suspicious for acute cholecystitis and a malignant mass in the gallbladder wall cannot be excluded Neurology:Mild Cognitive impairement ( MCI) , Secondary to mild stressor and hospitalization, Ortho consult: right knee was injected with lidocaine and depo-medrol, injection tolerated well Injection will take 48-72 hours for onset of pain relief ice, elevate PT, wbat will follow ok to d/c from ortho pov d/w Dr. Kwok Gi Consult: Impression: -- Suspicious GB imaging, with GB being impaled into the liver a GB malignancy is suspected Plan: -- Surgical evaluation at a tertiary care center has been again advised. While there EUS may play a role in making such a decision. Condition: Fair - Instructions Disposition: TRANSFER ACUTE CARE/OTHER HOSP - Home Medications Comprehensive Discharge Medication List: Ambulatory Orders Aspirin [ASA -] 81 mg PO DAILY #0 tab.chew 09/06/13 Simvastatin [Zocor -] 10 mg PO HS #0 tablet 09/06/13 Acetaminophen [Tylenol .Regular Strength -] 650 mg PO Q4H PRN 04/03/14 Amlodipine Besylate [Norvasc -] 2.5 mg PO DAILY 04/30/20 Folic Acid 1 mg PO DAILY 04/30/20 Risedronate Sodium [Actonel] 150 mg PO MONTHLY 04/30/20
--- NOTE | 2020-05-08 22:46 | PN ---
Progress Note (short form) - Note Progress Note: 85 Year old female history of HTN,HLD. Patient came to hospital for fall, difficulty walking around. Patient was tring to get something and she fell on to the floor. Patient has small nasal bone fracture and L2 transverse process fracture. Patient is feeling better, she has been mildly confused, in terms of not able to remember what date is this. Otherwise she is able to give comprehensive history. Her ct ehad is normal, NO NEW COPMLAIN c Neurological examination Alert oriented x 2, able to tell month and year, neck is supple speech is normal, eomi, pupils reactive no face asymmetry moving all ext sensation is normal gait is not tested ct head and ct c spine reviewed Assessment/Plan Mild Cognitive impairement ( MCI) , Secondary to mild stressor and hospitalization, Plan: 1. b12 was below normal, b12 supplementation follow up outpatient THanking you so much Adair Guillory MD
[2020-05-09 09:21] VITALS: TEMP 98
[2020-05-09] MEDS: FOLIC ACID 1 MG TABLET (FP) PO SCH (09:21)
[2020-05-09] MEDS: amLODIPine BESYLATE 2.5 MG TABLET (FP) PO SCH (09:21)
[2020-05-09] MEDS: CYANOCOBALAMIN (VITAMIN B-12) 1000 MCG/1 ML VIAL IM SCH (09:22)
--- NOTE | 2020-05-09 11:06 | PN ---
Progress Note, Physician History of Present Illness: Spoke with Patient and Daughter and son Pt willl go to [facility] for further work up as per family request Informed GI discussed with social and political studies professor also we will Fu - Current Medication List Current Medications: Active Medications Acetaminophen (Tylenol -) 650 mg PO Q6H PRN PRN Reason: PAIN LEVEL 1-10 Amlodipine Besylate (Norvasc -) 2.5 mg PO DAILY [facility] Last Admin: 05/09/20 09:21 Dose: 2.5 mg Documented by: Cyanocobalamin (Vitamin B12 Injection -) 1,000 mcg IM DAILY [facility] Last Admin: 05/09/20 09:22 Dose: 1,000 mcg Documented by: Folic Acid (Folic Acid -) 1 mg PO DAILY [facility] Last Admin: 05/09/20 09:21 Dose: 1 mg Documented by: - Objective Vital Signs: Vital Signs Temperature 98.0 F 05/09/20 09:00 Pulse Rate 58 L 05/09/20 09:00 Respiratory Rate 18 05/09/20 09:00 Blood Pressure 151/70 05/09/20 09:00 O2 Sat by Pulse Oximetry (%) 96 05/09/20 09:00 Labs: CBC, BMP 05/07/20 05:28 05/07/20 05:28 INR, PTT INR 1.02 (0.83-1.09) 04/28/20 21:30 Problem List - Problems (1) Atrophic kidney Code(s): N26.1 - ATROPHY OF KIDNEY (TERMINAL) (2) Fall Code(s): W19.XXXA - UNSPECIFIED FALL, INITIAL ENCOUNTER (3) HLD (hyperlipidemia) Code(s): E78.5 - HYPERLIPIDEMIA, UNSPECIFIED (4) HTN (hypertension) Code(s): I10 - ESSENTIAL (PRIMARY) HYPERTENSION (5) Hydronephrosis Code(s): N13.30 - UNSPECIFIED HYDRONEPHROSIS (6) Leukocytosis Code(s): D72.829 - ELEVATED WHITE BLOOD CELL COUNT, UNSPECIFIED (7) Dementia Code(s): F03.90 - UNSPECIFIED DEMENTIA WITHOUT BEHAVIORAL DISTURBANCE (8) Sepsis Code(s): A41.9 - SEPSIS, UNSPECIFIED ORGANISM (9) UTI (urinary tract infection) Code(s): N39.0 - URINARY TRACT INFECTION, SITE NOT SPECIFIED
--- NOTE | 2020-05-09 13:59 | PN ---
Progress Note (short form) - Note Progress Note: 85 Year old female history of HTN,HLD. Patient came to hospital for fall, difficulty walking around. Patient was tring to get something and she fell on to the floor. Patient has small nasal bone fracture and L2 transverse process fracture. Patient is feeling better, she has been mildly confused, in terms of not able to remember what date is this. Otherwise she is able to give comprehensive history. no new complain, patient is waiting to go to [facility] for work up of gall bladder condition. She is capable of making decision as per Pysch Neurological examination Alert oriented x 2, able to tell month and year, neck is supple speech is normal, eomi, pupils reactive no face asymmetry moving all ext sensation is normal gait is not tested ct head and ct c spine reviewed Assessment/Plan Mild Cognitive impairement ( MCI) , Secondary to mild stressor and hospitalization, Plan: 1. b12 was below normal, b12 supplementation, may give oral once she goes home follow up outpatient THanking you so much Adair Guillory MD
[2020-05-09 15:07] VITALS: BP 124/57; PULSE 57
== END 2020-05-09 17:14 | disposition short-term general hospital (02) | DRG 435 ==
LOC: JER 20:26 → JERBED 23:34 → J4S 04-29 21:39
PROVIDERS: ADMIT Internal Medicine; ATTEND Internal Medicine
PROC: 3E0U33Z Introduction of Anti-inflammatory into Joints, Percutaneous Approach (ICD-10-PCS; principal; 2020-05-08)
PROC: 3E0U3BZ Introduction of Anesthetic Agent into Joints, Percutaneous Approach (ICD-10-PCS; 2020-05-08)
DX: C23 Malignant neoplasm of gallbladder (principal); A41.89 Other specified sepsis; S32.028A Other fracture of second lumbar vertebra, initial encounter for closed fracture; N13.30 Unspecified hydronephrosis; N39.0 Urinary tract infection, site not specified; M62.82 Rhabdomyolysis; K82.8 Other specified diseases of gallbladder; S02.2XXA Fracture of nasal bones, initial encounter for closed fracture; I10 Essential (primary) hypertension; E78.5 Hyperlipidemia, unspecified; N26.1 Atrophy of kidney (terminal); D72.829 Elevated white blood cell count, unspecified; F03.90 Unspecified dementia, unspecified severity, without behavioral disturbance, psychotic disturbance, mood disturbance, and anxiety; B96.20 Unspecified Escherichia coli [E. coli] as the cause of diseases classified elsewhere; H40.20X0 Unspecified primary angle-closure glaucoma, stage unspecified; S09.90XA Unspecified injury of head, initial encounter; K80.20 Calculus of gallbladder without cholecystitis without obstruction; W06.XXXA Fall from bed, initial encounter; Y92.092 Bedroom in other non-institutional residence as the place of occurrence of the external cause; Z87.442 Personal history of urinary calculi
CPT/HCPCS: 36415; 70450-TC; 70486-TC; 71045-TC-FY; 71250-TC; 72125-TC; 72128-TC; 72131-TC; 73560-TC-RT-FY; 74181-TC; 76700-TC; 76775-TC; 78226-TC; 80048; 80053; 80076; 81003; 82150; 82550; 82553; 82607; 82746; 83690; 83735; 84100; 84443; 84484; 85025; 85610; 85730; 86140; 86301; 87040; 87086; 87186; 90670; 90715; 93005; 93010; 97116-GP; 97161-GP; 99285-25; A9537; U0003

== ENCOUNTER 2022-07-21 06:23 | Inpatient (IN) | payer OTHER ==
[2022-07-21 08:32] LABS: BASO % 0.4 % (0-2.0); HEMATOCRIT 41.9 % (32.4-45.2); LYMPH % 4.9 % (8-40); MCH 31.9 pg (25.7-33.7); MCHC 33.5 g/dl (32.0-36.0); MEAN CELL VOLUME 95.2 fl (80-96); MEAN PLT VOLUME 9.9 fl (7.5-11.1); MONO % 8.4 % (3.8-10.2); NEUT % 86.3 % (42.8-82.8); PLATELET COUNT 199 10^3/uL (134-434); RDW 14.2 % (11.6-15.6); WHITE BLOOD COUNT 13.9 K/mm3 (4.0-10.0)
[2022-07-21 08:35] LABS: EPI CELLS 9 /uL (0-25.1); HYALINE CASTS 0 /uL (0-3.1); URINE APPEARANCE TURBID; URINE BACTERIA >9,000 /uL (0-1359); URINE BILIRUBIN NEGATIVE (NEGATIVE); URINE COLOR YELLOW; URINE GLUCOSE (UA) NEGATIVE (NEGATIVE); URINE KETONE TRACE (NEGATIVE); URINE LEUK ESTERASE 3+ (NEGATIVE); URINE NITRITE NEGATIVE (NEGATIVE); URINE PROTEIN 2+ (NEGATIVE); URINE RBC 131 /uL (0-23.9); URINE UROBILINOGEN 0.2 mg/dL (0.2-1.0); URINE WBC 3863 /uL (0-25.8)
[2022-07-21] MEDS ORDERED: CEFTRIAXONE 1,000 MG in DEXTROSE 5%-WATER - 50 ML IVPB ONE (08:38)
[2022-07-21 08:45] LABS: URINE CRYSTALS NEGATIVE /hpf
[2022-07-21 08:56] LABS: BLOOD UREA NITROGEN 17.2 mg/dL (7-18); MAGNESIUM 2.4 mg/dL (1.8-2.4)
[2022-07-21 08:57] LABS: ALBUMIN 3.3 g/dl (3.4-5.0)
[2022-07-21 08:59] LABS: CREATININE 1.2 mg/dL (0.55-1.3)
[2022-07-21 09:01] LABS: TOT PROT 6.6 g/dl (6.4-8.2)
[2022-07-21] MEDS ORDERED: CEFTRIAXONE 1 GM/50 ML BAG ONE (09:15)
[2022-07-21] MEDS ORDERED: ASPIRIN 325 MG TABLET PO ONE (10:00)
[2022-07-21] MEDS ORDERED: ASPIRIN 81 MG CHEWABLE TABLETS PO ONE (10:01)
[2022-07-21 10:07] LABS: PHOSPHOROUS 2.8 mg/dL (2.5-4.9)
[2022-07-21] MEDS ORDERED: ASPIRIN 81 MG CHEWABLE TABLETS ONE (10:09)
[2022-07-21 11:02] LABS: N-TERMINAL BNP 1004.2 pg/ml (5-450)
[2022-07-21] MEDS ORDERED: ATORVASTATIN CA 80 MG TABLET (FP) PO ONE (16:33)
[2022-07-21] MEDS ORDERED: ACETAMINOPHEN 325 MG TABLET (FP) PO PRN (19:27)
[2022-07-21] MEDS ORDERED: ATORVASTATIN CA 80 MG TABLET (FP) ONE (19:51)
[2022-07-21] MEDS ORDERED: HEPARIN NA (PORCINE) 5,000 UNITS/ML 1ML VIAL ONE (22:22)
[2022-07-21] MEDS ORDERED: METOPROLOL TARTRATE 25 MG TABLET (FP) ONE (22:22)
[2022-07-21] MEDS: METOPROLOL TARTRATE 25 MG TABLET (FP) PO SCH (22:35)
[2022-07-21] MEDS: HEPARIN NA (PORCINE) 5,000 UNITS/ML 1ML VIAL SQ SCH (22:35)
[2022-07-22] MEDS: METOPROLOL TARTRATE 25 MG TABLET (FP) PO SCH ×3 (06:38→21:37)
[2022-07-22 07:45] LABS: BASO % 0.6 % (0-2.0); EOS % 1.2 % (0-4.5); HEMOGLOBIN 13.3 GM/dL (10.7-15.3); LYMPH % 15.1 % (8-40); MCHC 33.2 g/dl (32.0-36.0); MEAN CELL VOLUME 96.4 fl (80-96); MEAN PLT VOLUME 9.7 fl (7.5-11.1); MONO % 9.3 % (3.8-10.2); NEUT % 73.8 % (42.8-82.8); PLATELET COUNT 183 10^3/uL (134-434); RBC 4.15 M/mm3 (3.60-5.2); RDW 14.6 % (11.6-15.6); WHITE BLOOD COUNT 9.7 K/mm3 (4.0-10.0)
[2022-07-22 08:00] LABS: CHLORIDE 108 mmol/L (98-107); SODIUM 144 mmol/L (136-145)
[2022-07-22 08:04] LABS: GLUCOSE,RANDOM 71 mg/dL (74-106)
[2022-07-22 08:05] LABS: CALCIUM 8.3 mg/dL (8.5-10.1)
[2022-07-22 08:06] LABS: ANION GAP 9 MMOL/L (8-16); CO2 27 mmol/L (21-32)
[2022-07-22 08:09] LABS: CREATININE 1.3 mg/dL (0.55-1.3); SGOT/AST 26 U/L (15-37); SGPT/ALT 18 U/L (13-61)
[2022-07-22 08:10] LABS: BILIRUBIN,TOTAL 0.9 mg/dL (0.2-1); TOT PROT 5.6 g/dl (6.4-8.2)
[2022-07-22 08:11] LABS: ALK PHOS 78 U/L (45-117)
[2022-07-22 08:34] LABS: ALBUMIN 2.6 g/dl (3.4-5.0)
[2022-07-22] MEDS: HEPARIN NA (PORCINE) 5,000 UNITS/ML 1ML VIAL SQ SCH ×2 (09:51→21:37)
[2022-07-22] MEDS: CEFTRIAXONE 1 GM in DEXTROSE 5%-WATER - 50 ML IVPB SCH (09:51)
[2022-07-22] MEDS: ASPIRIN 81 MG CHEWABLE TABLETS PO SCH (10:03)
[2022-07-22] MEDS: ATORVASTATIN CA 80 MG TABLET (FP) PO SCH (21:37)
[2022-07-23] MEDS: METOPROLOL TARTRATE 25 MG TABLET (FP) PO SCH ×3 (06:11→21:35)
[2022-07-23] MEDS: HEPARIN NA (PORCINE) 5,000 UNITS/ML 1ML VIAL SQ SCH ×2 (10:14→21:35)
[2022-07-23] MEDS: ASPIRIN 81 MG CHEWABLE TABLETS PO SCH (10:14)
[2022-07-23] MEDS: CEFTRIAXONE 1 GM in DEXTROSE 5%-WATER - 50 ML IVPB SCH (10:15)
[2022-07-23] MEDS: ATORVASTATIN CA 80 MG TABLET (FP) PO SCH (21:35)
[2022-07-24] MEDS: METOPROLOL TARTRATE 25 MG TABLET (FP) PO SCH ×3 (05:59→21:48)
[2022-07-24] MEDS: CEFTRIAXONE 1 GM in DEXTROSE 5%-WATER - 50 ML IVPB SCH (10:53)
[2022-07-24] MEDS: ASPIRIN 81 MG CHEWABLE TABLETS PO SCH (10:53)
[2022-07-24] MEDS: HEPARIN NA (PORCINE) 5,000 UNITS/ML 1ML VIAL SQ SCH ×2 (10:53→21:49)
[2022-07-24] MEDS: ATORVASTATIN CA 80 MG TABLET (FP) PO SCH (21:48)
[2022-07-24 22:01] VITALS: BMI 23.2
[2022-07-25 05:54] VITALS: RESP 18
[2022-07-25] MEDS: METOPROLOL TARTRATE 25 MG TABLET (FP) PO SCH ×3 (06:21→21:23)
[2022-07-25] MEDS: ASPIRIN 81 MG CHEWABLE TABLETS PO SCH (09:32)
[2022-07-25] MEDS: ASCORBIC ACID 250 MG TABLET (FP) PO SCH (09:32)
[2022-07-25] MEDS: CEFTRIAXONE 1 GM in DEXTROSE 5%-WATER - 50 ML IVPB SCH (09:33)
[2022-07-25] MEDS: HEPARIN NA (PORCINE) 5,000 UNITS/ML 1ML VIAL SQ SCH ×2 (09:33→21:23)
[2022-07-25] MEDS: MULTIVITAMINS (DAILY MVI) TABLET (FP) PO SCH (09:33)
[2022-07-25] MEDS: ATORVASTATIN CA 80 MG TABLET (FP) PO SCH (21:23)
[2022-07-26] MEDS: METOPROLOL TARTRATE 25 MG TABLET (FP) PO SCH ×3 (05:24→22:16)
[2022-07-26] MEDS: CEFTRIAXONE 1 GM in DEXTROSE 5%-WATER - 50 ML IVPB SCH (09:44)
[2022-07-26] MEDS: HEPARIN NA (PORCINE) 5,000 UNITS/ML 1ML VIAL SQ SCH ×2 (09:44→22:17)
[2022-07-26] MEDS: ASCORBIC ACID 250 MG TABLET (FP) PO SCH (09:44)
[2022-07-26] MEDS: MULTIVITAMINS (DAILY MVI) TABLET (FP) PO SCH (09:44)
[2022-07-26] MEDS: ASPIRIN 81 MG CHEWABLE TABLETS PO SCH (09:44)
[2022-07-26] MEDS: ATORVASTATIN CA 80 MG TABLET (FP) PO SCH (22:17)
[2022-07-27] MEDS: METOPROLOL TARTRATE 25 MG TABLET (FP) PO SCH ×3 (05:52→21:57)
[2022-07-27] MEDS: MULTIVITAMINS (DAILY MVI) TABLET (FP) PO SCH (10:16)
[2022-07-27] MEDS: ASPIRIN 81 MG CHEWABLE TABLETS PO SCH (10:16)
[2022-07-27] MEDS: ASCORBIC ACID 250 MG TABLET (FP) PO SCH (10:16)
[2022-07-27] MEDS: CEFTRIAXONE 1 GM in DEXTROSE 5%-WATER - 50 ML IVPB SCH (10:16)
[2022-07-27] MEDS: HEPARIN NA (PORCINE) 5,000 UNITS/ML 1ML VIAL SQ SCH ×2 (10:17→21:57)
[2022-07-27] MEDS: ATORVASTATIN CA 80 MG TABLET (FP) PO SCH (21:57)
[2022-07-28] MEDS: METOPROLOL TARTRATE 25 MG TABLET (FP) PO SCH ×3 (06:18→21:10)
[2022-07-28] MEDS: HEPARIN NA (PORCINE) 5,000 UNITS/ML 1ML VIAL SQ SCH ×2 (09:36→21:12)
[2022-07-28] MEDS: ASCORBIC ACID 250 MG TABLET (FP) PO SCH (09:36)
[2022-07-28] MEDS: CEFTRIAXONE 1 GM in DEXTROSE 5%-WATER - 50 ML IVPB SCH (09:36)
[2022-07-28] MEDS: ASPIRIN 81 MG CHEWABLE TABLETS PO SCH (09:36)
[2022-07-28] MEDS: MULTIVITAMINS (DAILY MVI) TABLET (FP) PO SCH (09:36)
[2022-07-28 15:45] LABS: BLOOD UREA NITROGEN 24.8 mg/dL (7-18); CALCIUM 8.7 mg/dL (8.5-10.1)
[2022-07-28 15:48] LABS: CREATININE 0.9 mg/dL (0.55-1.3)
[2022-07-28] MEDS: ATORVASTATIN CA 80 MG TABLET (FP) PO SCH (21:10)
[2022-07-29] MEDS: METOPROLOL TARTRATE 25 MG TABLET (FP) PO SCH ×3 (05:46→21:01)
[2022-07-29] MEDS: ASPIRIN 81 MG CHEWABLE TABLETS PO SCH (10:12)
[2022-07-29] MEDS: ASCORBIC ACID 250 MG TABLET (FP) PO SCH (10:13)
[2022-07-29] MEDS: MULTIVITAMINS (DAILY MVI) TABLET (FP) PO SCH (10:14)
[2022-07-29] MEDS: HEPARIN NA (PORCINE) 5,000 UNITS/ML 1ML VIAL SQ SCH ×2 (10:28→21:01)
[2022-07-29] MEDS: CEFTRIAXONE 1 GM in DEXTROSE 5%-WATER - 50 ML IVPB SCH (10:33)
[2022-07-29 12:46] LABS: CALCIUM 8.6 mg/dL (8.5-10.1)
[2022-07-29 12:47] LABS: BLOOD UREA NITROGEN 21.4 mg/dL (7-18)
[2022-07-29] MEDS: SODIUM CHLORIDE 1,000 ML IV SCH (19:40)
[2022-07-29] MEDS: ATORVASTATIN CA 80 MG TABLET (FP) PO SCH (21:01)
[2022-07-30] MEDS: METOPROLOL TARTRATE 25 MG TABLET (FP) PO SCH ×3 (06:26→21:16)
[2022-07-30] MEDS: SODIUM CHLORIDE 1,000 ML IV SCH ×2 (09:05→21:18)
[2022-07-30] MEDS: ASPIRIN 81 MG CHEWABLE TABLETS PO SCH (10:47)
[2022-07-30] MEDS: ACETAMINOPHEN 325 MG TABLET (FP) PO PRN ×2 (10:49→21:17)
[2022-07-30] MEDS: ASCORBIC ACID 250 MG TABLET (FP) PO SCH (10:53)
[2022-07-30] MEDS: MULTIVITAMINS (DAILY MVI) TABLET (FP) PO SCH (10:53)
[2022-07-30] MEDS: CEFTRIAXONE 1 GM in DEXTROSE 5%-WATER - 50 ML IVPB SCH (10:55)
[2022-07-30 11:00] LABS: BASO % 0.6 % (0-2.0); EOS % 3.2 % (0-4.5); HEMATOCRIT 38.8 % (32.4-45.2); HEMOGLOBIN 12.8 GM/dL (10.7-15.3); MCH 31.8 pg (25.7-33.7); MCHC 32.9 g/dl (32.0-36.0); MEAN CELL VOLUME 96.5 fl (80-96); MEAN PLT VOLUME 10.1 fl (7.5-11.1); MONO % 9.9 % (3.8-10.2); NEUT % 71.3 % (42.8-82.8); PLATELET COUNT 242 10^3/uL (134-434); RBC 4.02 M/mm3 (3.60-5.2); RDW 14.5 % (11.6-15.6); WHITE BLOOD COUNT 8.8 K/mm3 (4.0-10.0)
[2022-07-30] MEDS: HEPARIN NA (PORCINE) 5,000 UNITS/ML 1ML VIAL SQ SCH ×2 (11:03→21:17)
[2022-07-30 11:32] LABS: CALCIUM 8.4 mg/dL (8.5-10.1)
[2022-07-30 11:33] LABS: BLOOD UREA NITROGEN 17.4 mg/dL (7-18)
[2022-07-30 11:36] LABS: CREATININE 0.9 mg/dL (0.55-1.3)
[2022-07-30] MEDS: ATORVASTATIN CA 80 MG TABLET (FP) PO SCH (21:17)
[2022-07-31] MEDS: METOPROLOL TARTRATE 25 MG TABLET (FP) PO SCH ×3 (05:43→21:21)
[2022-07-31] MEDS: SODIUM CHLORIDE 1,000 ML IV SCH (05:43)
[2022-07-31] MEDS: CEFTRIAXONE 1 GM in DEXTROSE 5%-WATER - 50 ML IVPB SCH (09:41)
[2022-07-31] MEDS: HEPARIN NA (PORCINE) 5,000 UNITS/ML 1ML VIAL SQ SCH ×2 (09:41→21:22)
[2022-07-31] MEDS: MULTIVITAMINS (DAILY MVI) TABLET (FP) PO SCH (09:41)
[2022-07-31] MEDS: ASCORBIC ACID 250 MG TABLET (FP) PO SCH (09:41)
[2022-07-31] MEDS: ASPIRIN 81 MG CHEWABLE TABLETS PO SCH (09:41)
[2022-07-31] MEDS: ATORVASTATIN CA 80 MG TABLET (FP) PO SCH (21:21)
[2022-08-01] MEDS: METOPROLOL TARTRATE 25 MG TABLET (FP) PO SCH ×2 (05:44→13:00)
[2022-08-01] MEDS: ASCORBIC ACID 250 MG TABLET (FP) PO SCH (09:34)
[2022-08-01] MEDS: MULTIVITAMINS (DAILY MVI) TABLET (FP) PO SCH (09:34)
[2022-08-01] MEDS: HEPARIN NA (PORCINE) 5,000 UNITS/ML 1ML VIAL SQ SCH (09:34)
[2022-08-01] MEDS: ASPIRIN 81 MG CHEWABLE TABLETS PO SCH (09:34)
[2022-08-01 14:05] VITALS: BP 144/66; PULSE 59; TEMP 97.6
== END 2022-08-01 14:36 | DRG 690 ==
LOC: JER 06:23 → JERBED 09:56 → J4W 07-22 01:08 → J6S 07-24 21:58
PROVIDERS: ADMIT Internal Medicine; ATTEND Internal Medicine
DX: N39.0 Urinary tract infection, site not specified (principal); I24.8 Other forms of acute ischemic heart disease; I10 Essential (primary) hypertension; E78.5 Hyperlipidemia, unspecified; F03.90 Unspecified dementia, unspecified severity, without behavioral disturbance, psychotic disturbance, mood disturbance, and anxiety; E78.00 Pure hypercholesterolemia, unspecified; I65.21 Occlusion and stenosis of right carotid artery; M81.0 Age-related osteoporosis without current pathological fracture; N81.3 Complete uterovaginal prolapse; W19.XXXA Unspecified fall, initial encounter; Y93.89 Activity, other specified; Y92.008 Other place in unspecified non-institutional (private) residence as the place of occurrence of the external cause; Y99.8 Other external cause status
CPT/HCPCS: 0241U-QW; 36415; 70450-TC; 70498-TC; 71045-TC-FY; 72125-TC; 72170-TC-FY; 80048; 80053; 80061; 81003; 82550; 82553; 82607; 83036; 83735; 83880; 84100; 84439; 84443; 84484; 85025; 87086; 87186; 93005; 93010; 93306-TC; 93880-TC; 97116-GP; 97161-GP; 99285-25; C9803-CS; J1644; Q9967; U0003; U0005

== ENCOUNTER 2022-11-04 18:44 | Observation (INO) | payer OTHER ==
[2022-11-04 19:19] VITALS: BMI 21.6
[2022-11-04 20:19] LABS: BASO % 0.8 % (0-2.0); EOS % 4.9 % (0-4.5); HEMATOCRIT 36.9 % (32.4-45.2); HEMOGLOBIN 12.2 GM/dL (10.7-15.3); LYMPH % 22.4 % (8-40); MEAN CELL VOLUME 100.1 fl (80-96); MEAN PLT VOLUME 9.3 fl (7.5-11.1); MONO % 10.1 % (3.8-10.2); NEUT % 61.8 % (42.8-82.8); PLATELET COUNT 217 10^3/uL (134-434); RBC 3.69 M/mm3 (3.60-5.2); RDW 14.6 % (11.6-15.6); WHITE BLOOD COUNT 8.5 K/mm3 (4.0-10.0)
[2022-11-04 20:37] LABS: ALBUMIN 3.1 g/dl (3.4-5.0); CALCIUM 9.4 mg/dL (8.5-10.1)
[2022-11-04 20:38] LABS: BLOOD UREA NITROGEN 24.8 mg/dL (7-18)
[2022-11-04 20:41] LABS: CREATININE 1.4 mg/dL (0.55-1.3)
[2022-11-04 20:42] LABS: BILIRUBIN,TOTAL 0.5 mg/dL (0.2-1); TOT PROT 6.3 g/dl (6.4-8.2)
[2022-11-04 22:21] LABS: PH,URINE 5.5 (5.0-8.0); URINE APPEARANCE CLEAR; URINE BILIRUBIN NEGATIVE (NEGATIVE); URINE COLOR YELLOW; URINE GLUCOSE (UA) NEGATIVE (NEGATIVE); URINE KETONE TRACE (NEGATIVE); URINE LEUK ESTERASE NEGATIVE (NEGATIVE); URINE NITRITE NEGATIVE (NEGATIVE); URINE PROTEIN TRACE (NEGATIVE); URINE UROBILINOGEN 0.2 mg/dL (0.2-1.0)
[2022-11-04] MEDS ORDERED: SODIUM CHLORIDE 250 ML IV STA (23:11)
[2022-11-05] MEDS ORDERED: ASPIRIN 81 MG CHEWABLE TABLETS PO ONE (02:52)
[2022-11-05] MEDS ORDERED: DOCUSATE SODIUM 100 MG CAPSULE (FP) PO PRN (02:54)
[2022-11-05] MEDS ORDERED: ACETAMINOPHEN 325 MG TABLET (FP) PO PRN (02:54)
[2022-11-05] MEDS: SODIUM CHLORIDE 1,000 ML IV SCH (04:30)
[2022-11-05 08:10] LABS: BASO % 0.7 % (0-2.0); EOS % 6.7 % (0-4.5); HEMOGLOBIN 11.8 GM/dL (10.7-15.3); LYMPH % 21.6 % (8-40); MCH 32.7 pg (25.7-33.7); MCHC 32.8 g/dl (32.0-36.0); MEAN CELL VOLUME 99.6 fl (80-96); MEAN PLT VOLUME 9.4 fl (7.5-11.1); PLATELET COUNT 193 10^3/uL (134-434); RBC 3.61 M/mm3 (3.60-5.2); RDW 14.5 % (11.6-15.6); WHITE BLOOD COUNT 9.9 K/mm3 (4.0-10.0)
[2022-11-05 08:37] LABS: BLOOD UREA NITROGEN 21.5 mg/dL (7-18); CALCIUM 8.8 mg/dL (8.5-10.1)
[2022-11-05] MEDS: INSULIN SLIDING SCALE (NOVOLOG) 1 VIAL SQ SCH ×4 (10:26→22:51)
[2022-11-05] MEDS: amLODIPine BESYLATE 5 MG TABLET (FP) PO SCH (12:29)
[2022-11-05] MEDS: HEPARIN NA (PORCINE) 5,000 UNITS/ML 1ML VIAL SQ SCH ×2 (12:29→22:45)
[2022-11-05] MEDS: FOLIC ACID 1 MG TABLET (FP) PO SCH (12:29)
[2022-11-05] MEDS: ASCORBIC ACID 250 MG TABLET (FP) PO SCH (12:30)
[2022-11-05] MEDS: ZINC OXIDE 20% TOPICAL OINTMENT 30 GM TUBE TP SCH ×2 (12:30→22:51)
[2022-11-05] MEDS: MULTIVITAMINS (DAILY MVI) TABLET (FP) PO SCH (12:30)
[2022-11-05] MEDS ORDERED: ATORVASTATIN CA 80 MG TABLET (FP) PO SCH (22:00)
[2022-11-05] MEDS ORDERED: HEPARIN NA (PORCINE) 5,000 UNITS/ML 1ML VIAL ONE (22:13)
[2022-11-05] MEDS ORDERED: ATORVASTATIN CA 80 MG TABLET (FP) ONE (22:13)
[2022-11-06] MEDS: METOPROLOL TARTRATE 25 MG TABLET (FP) PO SCH ×4 (06:41→15:28)
[2022-11-06] MEDS: SODIUM CHLORIDE 1,000 ML IV SCH (06:42)
[2022-11-06] MEDS ORDERED: METOPROLOL TARTRATE 25 MG TABLET (FP) ONE (06:43)
[2022-11-06] MEDS: INSULIN SLIDING SCALE (NOVOLOG) 1 VIAL SQ SCH ×2 (07:40→15:28)
[2022-11-06] MEDS: ZINC OXIDE 20% TOPICAL OINTMENT 30 GM TUBE TP SCH (10:45)
[2022-11-06] MEDS: amLODIPine BESYLATE 5 MG TABLET (FP) PO SCH (10:45)
[2022-11-06] MEDS: HEPARIN NA (PORCINE) 5,000 UNITS/ML 1ML VIAL SQ SCH (10:45)
[2022-11-06] MEDS: MULTIVITAMINS (DAILY MVI) TABLET (FP) PO SCH (10:45)
[2022-11-06] MEDS: ASCORBIC ACID 250 MG TABLET (FP) PO SCH (10:45)
[2022-11-06 13:38] VITALS: RESP 18
[2022-11-06] MEDS: FOLIC ACID 1 MG TABLET (FP) PO SCH (15:26)
[2022-11-06 16:31] VITALS: BP 99/78; PULSE 68; TEMP 98.4
== END 2022-11-06 17:25 ==
LOC: JER 18:44 → JERBED 21:15
PROVIDERS: ADMIT Internal Medicine
PROC: 3E0337Z Introduction of Electrolytic and Water Balance Substance into Peripheral Vein, Percutaneous Approach (ICD-10-PCS; principal; 2022-11-04)
DX: I63.89 Other cerebral infarction (principal); N17.9 Acute kidney failure, unspecified; E11.9 Type 2 diabetes mellitus without complications; E78.5 Hyperlipidemia, unspecified; I25.10 Atherosclerotic heart disease of native coronary artery without angina pectoris; I11.9 Hypertensive heart disease without heart failure; I65.29 Occlusion and stenosis of unspecified carotid artery; N20.0 Calculus of kidney; F03.90 Unspecified dementia, unspecified severity, without behavioral disturbance, psychotic disturbance, mood disturbance, and anxiety; Z87.891 Personal history of nicotine dependence; R29.6 Repeated falls; Z95.5 Presence of coronary angioplasty implant and graft; D64.9 Anemia, unspecified
CPT/HCPCS: 0241U-QW; 36415; 70450-TC; 71045-TC-FY; 71046-TC-FY; 73521-TC-FY; 80048; 80053; 80061; 81003; 82962; 84439; 84443; 84484; 85025; 87086; 93005; 93010; 93306-TC; 96360; 99285-25; G0378; J1644

== ENCOUNTER 2022-11-15 12:33 | Inpatient (IN) | payer OTHER ==
[2022-11-15] MEDS ORDERED: ACETAMINOPHEN 1000 MG/100 ML BAG IVPB ONE ×2 (13:03→21:28)
[2022-11-15] MEDS ORDERED: ACETAMINOPHEN INJECTION 100 ML IVPB ONE ×2 (13:28→21:27)
[2022-11-15 13:35] LABS: BASO % 0.4 % (0-2.0); EOS % 2.5 % (0-4.5); HEMATOCRIT 39.2 % (32.4-45.2); HEMOGLOBIN 12.9 GM/dL (10.7-15.3); LYMPH % 12.5 % (8-40); MCH 32.4 pg (25.7-33.7); MCHC 32.9 g/dl (32.0-36.0); MEAN CELL VOLUME 98.5 fl (80-96); MEAN PLT VOLUME 8.6 fl (7.5-11.1); MONO % 6.5 % (3.8-10.2); NEUT % 78.1 % (42.8-82.8); PLATELET COUNT 257 10^3/uL (134-434); RBC 3.98 M/mm3 (3.60-5.2); RDW 13.9 % (11.6-15.6); WHITE BLOOD COUNT 11.8 K/mm3 (4.0-10.0)
[2022-11-15 13:39] LABS: EPI CELLS 7 /uL (0-25.1); HYALINE CASTS 6 /uL (0-3.1); PH,URINE 8.5 (5.0-8.0); URINE APPEARANCE CLOUDY; URINE BACTERIA 6693 /uL (0-1359); URINE BILIRUBIN NEGATIVE (NEGATIVE); URINE COLOR YELLOW; URINE GLUCOSE (UA) NEGATIVE (NEGATIVE); URINE KETONE NEGATIVE (NEGATIVE); URINE LEUK ESTERASE 2+ (NEGATIVE); URINE NITRITE NEGATIVE (NEGATIVE); URINE PROTEIN 1+ (NEGATIVE); URINE RBC 7 /uL (0-23.9); URINE WBC 795 /uL (0-25.8)
[2022-11-15] MEDS ORDERED: CEFTRIAXONE 1,000 MG in DEXTROSE 5%-WATER - 50 ML IVPB ONE (13:47)
[2022-11-15] MEDS ORDERED: CEFTRIAXONE 1 GM/50 ML BAG ONE (13:51)
[2022-11-15 13:52] LABS: CHLORIDE 108 mmol/L (98-107); SODIUM 138 mmol/L (136-145)
[2022-11-15 13:54] LABS: ALBUMIN 2.9 g/dl (3.4-5.0); BLOOD UREA NITROGEN 20.1 mg/dL (7-18); CALCIUM 8.5 mg/dL (8.5-10.1); CO2 24 mmol/L (21-32); GLUCOSE,RANDOM 117 mg/dL (74-106); MAGNESIUM 2.2 mg/dL (1.8-2.4)
[2022-11-15 13:58] LABS: SGOT/AST 64 U/L (15-37); SGPT/ALT 24 U/L (13-61)
[2022-11-15 13:59] LABS: BILIRUBIN,TOTAL 0.8 mg/dL (0.2-1); TOT PROT 6.8 g/dl (6.4-8.2)
[2022-11-15 14:00] LABS: ALK PHOS 94 U/L (45-117)
[2022-11-15 14:07] LABS: ANION GAP 7 MMOL/L (8-16)
[2022-11-15 15:41] LABS: INR 0.97 (0.83-1.09); PROTHROMBIN TIME (PATIENT) 11.1 SEC (9.7-13.0)
[2022-11-15 15:44] LABS: ACTIVATED PTT 29.8 SECONDS (25.2-36.5)
[2022-11-15 15:57] LABS: ALBUMIN 3.2 g/dl (3.4-5.0); BLOOD UREA NITROGEN 19.7 mg/dL (7-18); CALCIUM 8.8 mg/dL (8.5-10.1)
[2022-11-15 16:00] LABS: CREATININE 0.9 mg/dL (0.55-1.3)
[2022-11-15 16:02] LABS: BILIRUBIN,TOTAL 0.5 mg/dL (0.2-1); TOT PROT 6.8 g/dl (6.4-8.2)
[2022-11-15] MEDS ORDERED: morphine SULFATE 4 MG/ML VIAL IVPUSH ONE (19:27)
[2022-11-15] MEDS ORDERED: SODIUM CHLORIDE 0.9% 500 ML INFUS.BAG IV ONE (19:39)
[2022-11-15] MEDS ORDERED: REMDESIVIR 200 MG in SODIUM CHLORIDE 250 ML IVPB ONE (19:49)
[2022-11-15] MEDS ORDERED: DOCUSATE SODIUM 100 MG CAPSULE (FP) PO PRN (19:52)
[2022-11-15] MEDS: ACETAMINOPHEN 1000 MG/100 ML BAG IVPB SCH (21:29)
[2022-11-15] MEDS ORDERED: RISEDRONATE PO SCH (21:45)
[2022-11-15] MEDS ORDERED: HEPARIN NA (PORCINE) 5,000 UNITS/ML 1ML VIAL SQ SCH (22:00)
[2022-11-15] MEDS ORDERED: METOPROLOL TARTRATE 25 MG TABLET (FP) PO SCH (22:00)
[2022-11-15] MEDS: INSULIN SLIDING SCALE (NOVOLOG) 1 VIAL SQ SCH (22:34)
[2022-11-15] MEDS ORDERED: ATORVASTATIN CA 80 MG TABLET (FP) ONE (22:36)
[2022-11-15] MEDS ORDERED: METOPROLOL TARTRATE 25 MG TABLET (FP) ONE (22:36)
[2022-11-15] MEDS: ATORVASTATIN CA 80 MG TABLET (FP) PO SCH (22:41)
[2022-11-15] MEDS ORDERED: ALBUTEROL SO4 HFA INHALER IH PRN (23:30)
[2022-11-16] MEDS ORDERED: ACETAMINOPHEN INJECTION 100 ML IVPB ONE (03:28)
[2022-11-16] MEDS: ACETAMINOPHEN 1000 MG/100 ML BAG IVPB SCH ×3 (03:52→14:39)
[2022-11-16] MEDS: METOPROLOL TARTRATE 25 MG TABLET (FP) PO SCH ×3 (06:01→22:13)
[2022-11-16 07:24] LABS: CALCIUM 8.3 mg/dL (8.5-10.1)
[2022-11-16 07:25] LABS: BLOOD UREA NITROGEN 17.6 mg/dL (7-18)
[2022-11-16 07:28] LABS: CREATININE 0.8 mg/dL (0.55-1.3)
[2022-11-16] MEDS ORDERED: ASCORBIC ACID 500 MG TABLET (FP) ONE (07:42)
[2022-11-16] MEDS ORDERED: FOLIC ACID 1 MG TABLET (FP) ONE (07:42)
[2022-11-16] MEDS ORDERED: HEPARIN NA (PORCINE) 5,000 UNITS/ML 1ML VIAL ONE (07:43)
[2022-11-16] MEDS ORDERED: MULTIVITAMINS (DAILY MVI) TABLET (FP) ONE (07:43)
[2022-11-16] MEDS ORDERED: amLODIPine BESYLATE 2.5 MG TABLET (FP) ONE (07:43)
[2022-11-16] MEDS ORDERED: ASPIRIN 81 MG CHEWABLE TABLETS ONE (07:43)
[2022-11-16] MEDS ORDERED: CEFTRIAXONE 1 GM/50 ML BAG ONE (07:44)
[2022-11-16 08:01] LABS: BASO % 0.9 % (0-2.0); EOS % 8.2 % (0-4.5); HEMATOCRIT 37.7 % (32.4-45.2); HEMOGLOBIN 12.6 GM/dL (10.7-15.3); LYMPH % 17.3 % (8-40); MCH 33.3 pg (25.7-33.7); MCHC 33.5 g/dl (32.0-36.0); MEAN CELL VOLUME 99.5 fl (80-96); MEAN PLT VOLUME 9.5 fl (7.5-11.1); MONO % 7.5 % (3.8-10.2); NEUT % 66.1 % (42.8-82.8); PLATELET COUNT 253 10^3/uL (134-434); WHITE BLOOD COUNT 8.4 K/mm3 (4.0-10.0)
[2022-11-16] MEDS: INSULIN SLIDING SCALE (NOVOLOG) 1 VIAL SQ SCH ×4 (09:13→23:01)
[2022-11-16] MEDS: ASPIRIN 81 MG CHEWABLE TABLETS PO SCH (11:15)
[2022-11-16] MEDS: amLODIPine BESYLATE 2.5 MG TABLET (FP) PO SCH (11:15)
[2022-11-16] MEDS: FOLIC ACID 1 MG TABLET (FP) PO SCH (11:15)
[2022-11-16] MEDS: CEFTRIAXONE 1 GM in DEXTROSE 5%-WATER - 50 ML IVPB SCH (11:15)
[2022-11-16] MEDS: ASCORBIC ACID 250 MG TABLET (FP) PO SCH (11:15)
[2022-11-16] MEDS: MULTIVITAMINS (DAILY MVI) TABLET (FP) PO SCH (12:00)
[2022-11-16] MEDS: HEPARIN NA (PORCINE) 5,000 UNITS/ML 1ML VIAL SQ SCH ×2 (12:00→22:12)
[2022-11-16] MEDS: ATORVASTATIN CA 80 MG TABLET (FP) PO SCH (22:13)
[2022-11-16] MEDS: REMDESIVIR 100 MG in SODIUM CHLORIDE 250 ML IVPB SCH (23:00)
[2022-11-17] MEDS: METOPROLOL TARTRATE 25 MG TABLET (FP) PO SCH ×3 (06:28→21:39)
[2022-11-17] MEDS: INSULIN SLIDING SCALE (NOVOLOG) 1 VIAL SQ SCH ×4 (06:29→22:18)
[2022-11-17] MEDS: ASPIRIN 81 MG CHEWABLE TABLETS PO SCH (09:50)
[2022-11-17] MEDS: MULTIVITAMINS (DAILY MVI) TABLET (FP) PO SCH (09:50)
[2022-11-17] MEDS: HEPARIN NA (PORCINE) 5,000 UNITS/ML 1ML VIAL SQ SCH ×2 (09:50→21:38)
[2022-11-17] MEDS: CEFTRIAXONE 1 GM in DEXTROSE 5%-WATER - 50 ML IVPB SCH (09:50)
[2022-11-17] MEDS: FOLIC ACID 1 MG TABLET (FP) PO SCH (09:50)
[2022-11-17] MEDS: ASCORBIC ACID 250 MG TABLET (FP) PO SCH (09:50)
[2022-11-17] MEDS: amLODIPine BESYLATE 2.5 MG TABLET (FP) PO SCH (09:50)
[2022-11-17] MEDS: DEXAMETHASONE SOD PHOSPHATE 10 MG/1 ML VIAL IVPUSH SCH (10:48)
[2022-11-17] MEDS: oxyCODONE HCL 5 MG TABLET PO PRN (11:07)
[2022-11-17 13:53] VITALS: BMI 19.8
[2022-11-17] MEDS: ATORVASTATIN CA 80 MG TABLET (FP) PO SCH (21:38)
[2022-11-17] MEDS: REMDESIVIR 100 MG in SODIUM CHLORIDE 250 ML IVPB SCH (22:19)
[2022-11-18] MEDS: INSULIN SLIDING SCALE (NOVOLOG) 1 VIAL SQ SCH ×4 (06:05→22:11)
[2022-11-18] MEDS: METOPROLOL TARTRATE 25 MG TABLET (FP) PO SCH ×3 (06:05→22:11)
[2022-11-18] MEDS: MULTIVITAMINS (DAILY MVI) TABLET (FP) PO SCH (10:28)
[2022-11-18] MEDS: oxyCODONE HCL 5 MG TABLET PO PRN (10:28)
[2022-11-18] MEDS: amLODIPine BESYLATE 2.5 MG TABLET (FP) PO SCH (10:28)
[2022-11-18] MEDS: ASCORBIC ACID 250 MG TABLET (FP) PO SCH (10:28)
[2022-11-18] MEDS: CEFTRIAXONE 1 GM in DEXTROSE 5%-WATER - 50 ML IVPB SCH (10:28)
[2022-11-18] MEDS: ASPIRIN 81 MG CHEWABLE TABLETS PO SCH (10:28)
[2022-11-18] MEDS: FOLIC ACID 1 MG TABLET (FP) PO SCH (10:28)
[2022-11-18] MEDS: HEPARIN NA (PORCINE) 5,000 UNITS/ML 1ML VIAL SQ SCH ×2 (10:30→22:10)
[2022-11-18] MEDS: DEXAMETHASONE SOD PHOSPHATE 10 MG/1 ML VIAL IVPUSH SCH (10:30)
[2022-11-18] MEDS: ATORVASTATIN CA 80 MG TABLET (FP) PO SCH (22:10)
[2022-11-18] MEDS: REMDESIVIR 100 MG in SODIUM CHLORIDE 250 ML IVPB SCH (22:28)
[2022-11-19] MEDS: METOPROLOL TARTRATE 25 MG TABLET (FP) PO SCH ×3 (06:59→22:23)
[2022-11-19] MEDS: INSULIN SLIDING SCALE (NOVOLOG) 1 VIAL SQ SCH ×4 (07:00→22:48)
[2022-11-19 09:59] LABS: BASO % 0.2 % (0-2.0); HEMATOCRIT 36.4 % (32.4-45.2); HEMOGLOBIN 12.1 GM/dL (10.7-15.3); LYMPH % 12.6 % (8-40); MCHC 33.3 g/dl (32.0-36.0); MEAN CELL VOLUME 99.2 fl (80-96); MONO % 8.9 % (3.8-10.2); NEUT % 78.3 % (42.8-82.8); PLATELET COUNT 328 10^3/uL (134-434); RBC 3.67 M/mm3 (3.60-5.2); RDW 14.1 % (11.6-15.6); WHITE BLOOD COUNT 9.8 K/mm3 (4.0-10.0)
[2022-11-19 10:13] LABS: ALBUMIN 2.6 g/dl (3.4-5.0); BLOOD UREA NITROGEN 38.6 mg/dL (7-18); CALCIUM 8.7 mg/dL (8.5-10.1)
[2022-11-19 10:17] LABS: BILIRUBIN,TOTAL 0.3 mg/dL (0.2-1); TOT PROT 5.6 g/dl (6.4-8.2)
[2022-11-19] MEDS: amLODIPine BESYLATE 2.5 MG TABLET (FP) PO SCH (10:27)
[2022-11-19] MEDS: FOLIC ACID 1 MG TABLET (FP) PO SCH (10:27)
[2022-11-19] MEDS: CEFTRIAXONE 1 GM in DEXTROSE 5%-WATER - 50 ML IVPB SCH (10:27)
[2022-11-19] MEDS: MULTIVITAMINS (DAILY MVI) TABLET (FP) PO SCH (10:27)
[2022-11-19] MEDS: ASPIRIN 81 MG CHEWABLE TABLETS PO SCH (10:27)
[2022-11-19] MEDS: ASCORBIC ACID 250 MG TABLET (FP) PO SCH (10:27)
[2022-11-19] MEDS: DEXAMETHASONE SOD PHOSPHATE 10 MG/1 ML VIAL IVPUSH SCH (10:28)
[2022-11-19] MEDS: HEPARIN NA (PORCINE) 5,000 UNITS/ML 1ML VIAL SQ SCH ×2 (10:28→22:23)
[2022-11-19] MEDS: ATORVASTATIN CA 80 MG TABLET (FP) PO SCH (22:23)
[2022-11-19] MEDS: REMDESIVIR 100 MG in SODIUM CHLORIDE 250 ML IVPB SCH (22:23)
[2022-11-20] MEDS: INSULIN SLIDING SCALE (NOVOLOG) 1 VIAL SQ SCH ×4 (06:32→23:04)
[2022-11-20] MEDS: METOPROLOL TARTRATE 25 MG TABLET (FP) PO SCH ×3 (06:37→23:03)
[2022-11-20] MEDS: amLODIPine BESYLATE 2.5 MG TABLET (FP) PO SCH (10:46)
[2022-11-20] MEDS: ASPIRIN 81 MG CHEWABLE TABLETS PO SCH (10:46)
[2022-11-20] MEDS: FOLIC ACID 1 MG TABLET (FP) PO SCH (10:46)
[2022-11-20] MEDS: ASCORBIC ACID 250 MG TABLET (FP) PO SCH (10:47)
[2022-11-20] MEDS: CEFTRIAXONE 1 GM in DEXTROSE 5%-WATER - 50 ML IVPB SCH (10:47)
[2022-11-20] MEDS: HEPARIN NA (PORCINE) 5,000 UNITS/ML 1ML VIAL SQ SCH ×2 (10:47→23:03)
[2022-11-20] MEDS: MULTIVITAMINS (DAILY MVI) TABLET (FP) PO SCH (10:47)
[2022-11-20] MEDS: DEXAMETHASONE SOD PHOSPHATE 10 MG/1 ML VIAL IVPUSH SCH (10:48)
[2022-11-20] MEDS: ATORVASTATIN CA 80 MG TABLET (FP) PO SCH (23:03)
[2022-11-21] MEDS: METOPROLOL TARTRATE 25 MG TABLET (FP) PO SCH ×2 (06:04→15:15)
[2022-11-21] MEDS: INSULIN SLIDING SCALE (NOVOLOG) 1 VIAL SQ SCH ×3 (06:04→17:34)
[2022-11-21] MEDS: MULTIVITAMINS (DAILY MVI) TABLET (FP) PO SCH (09:16)
[2022-11-21] MEDS: ASPIRIN 81 MG CHEWABLE TABLETS PO SCH (09:16)
[2022-11-21] MEDS: CEFTRIAXONE 1 GM in DEXTROSE 5%-WATER - 50 ML IVPB SCH (09:16)
[2022-11-21] MEDS: FOLIC ACID 1 MG TABLET (FP) PO SCH (09:16)
[2022-11-21] MEDS: amLODIPine BESYLATE 2.5 MG TABLET (FP) PO SCH (09:17)
[2022-11-21] MEDS: DEXAMETHASONE SOD PHOSPHATE 10 MG/1 ML VIAL IVPUSH SCH (09:17)
[2022-11-21] MEDS: ASCORBIC ACID 250 MG TABLET (FP) PO SCH (09:17)
[2022-11-21] MEDS: HEPARIN NA (PORCINE) 5,000 UNITS/ML 1ML VIAL SQ SCH (09:17)
[2022-11-21 12:53] VITALS: RESP 18
[2022-11-21 16:17] VITALS: BP 139/78; PULSE 72; TEMP 98.2
== END 2022-11-21 18:04 | disposition home or self-care (01) | DRG 178 ==
LOC: JER 12:33 → JERBED 19:08 → J4W 11-16 12:58
PROVIDERS: ADMIT Internal Medicine; ATTEND Internal Medicine
PROC: XW033E5 Introduction of Remdesivir Anti-infective into Peripheral Vein, Percutaneous Approach, New Technology Group 5 (ICD-10-PCS; principal; 2022-11-15)
DX: U07.1 COVID-19 (principal); N39.0 Urinary tract infection, site not specified; S32.89XA Fracture of other parts of pelvis, initial encounter for closed fracture; I25.10 Atherosclerotic heart disease of native coronary artery without angina pectoris; I25.2 Old myocardial infarction; I10 Essential (primary) hypertension; E78.5 Hyperlipidemia, unspecified; M81.0 Age-related osteoporosis without current pathological fracture; F03.90 Unspecified dementia, unspecified severity, without behavioral disturbance, psychotic disturbance, mood disturbance, and anxiety; Y99.8 Other external cause status; E11.9 Type 2 diabetes mellitus without complications; E88.09 Other disorders of plasma-protein metabolism, not elsewhere classified; W19.XXXA Unspecified fall, initial encounter; Y93.89 Activity, other specified; Y92.003 Bedroom of unspecified non-institutional (private) residence as the place of occurrence of the external cause
CPT/HCPCS: 0241U-QW; 36415; 70450-TC; 71045-TC-FY; 72125-TC; 72128-TC; 72131-TC; 72170-TC-FY; 72192-TC; 73552-TC-LT-FY; 73552-TC-RT-FY; 80048; 80053; 81003; 82728; 82962; 83615; 83735; 84484; 85025; 85610; 85730; 86140; 87086; 87186; 93005; 93010; 97116-GP; 97162-GP; 99285-25; C9399; J1100; J1644

== ENCOUNTER 2023-03-10 19:34 | Inpatient (IN) | payer OTHER ==
[2023-03-10] MEDS ORDERED: ACETAMINOPHEN 500 MG TABLET (FP) PO ONE (20:17)
[2023-03-10 20:53] LABS: BASO % 0.4 % (0-2.0); HEMOGLOBIN 13.3 GM/dL (10.7-15.3); LYMPH % 10.2 % (8-40); MCHC 33.3 g/dl (32.0-36.0); MEAN PLT VOLUME 8.8 fl (7.5-11.1); MONO % 8.1 % (3.8-10.2); NEUT % 78.3 % (42.8-82.8); PLATELET COUNT 246 10^3/uL (134-434); RDW 14.2 % (11.6-15.6); WHITE BLOOD COUNT 11.4 K/mm3 (4.0-10.0)
[2023-03-10 21:02] LABS: INR 0.91 (0.83-1.09); PROTHROMBIN TIME (PATIENT) 10.6 SEC (9.7-13.0)
[2023-03-10 21:05] LABS: ACTIVATED PTT 31.5 SECONDS (25.2-36.5)
[2023-03-10 21:12] LABS: CHLORIDE 108 mmol/L (98-107); POTASSIUM 3.5 mmol/L (3.5-5.1); SODIUM 143 mmol/L (136-145)
[2023-03-10 21:14] LABS: ANION GAP 7 MMOL/L (8-16); BLOOD UREA NITROGEN 14.6 mg/dL (7-18); CO2 28 mmol/L (21-32); GLUCOSE,RANDOM 112 mg/dL (74-106); MAGNESIUM 2.1 mg/dL (1.8-2.4)
[2023-03-10 21:15] LABS: ALBUMIN 3.6 g/dl (3.4-5.0)
[2023-03-10 21:17] LABS: PHOSPHOROUS 3.1 mg/dL (2.5-4.9); SGOT/AST 24 U/L (15-37); SGPT/ALT 23 U/L (13-61)
[2023-03-10 21:19] LABS: BILIRUBIN,TOTAL 0.6 mg/dL (0.2-1)
[2023-03-10] MEDS ORDERED: ACETAMINOPHEN 500 MG TABLET (FP) ONE (21:19)
[2023-03-10 21:20] LABS: ALK PHOS 105 U/L (45-117)
[2023-03-10 21:27] LABS: PH,URINE 5.5 (5.0-8.0); URINE APPEARANCE CLEAR; URINE BILIRUBIN NEGATIVE (NEGATIVE); URINE COLOR YELLOW; URINE GLUCOSE (UA) NEGATIVE (NEGATIVE); URINE KETONE NEGATIVE (NEGATIVE); URINE LEUK ESTERASE NEGATIVE (NEGATIVE); URINE NITRITE NEGATIVE (NEGATIVE); URINE PROTEIN TRACE (NEGATIVE); URINE UROBILINOGEN 0.2 mg/dL (0.2-1.0)
[2023-03-10] MEDS ORDERED: amLODIPine BESYLATE 2.5 MG TABLET (FP) PO ONE (22:25)
[2023-03-10] MEDS ORDERED: amLODIPine BESYLATE 2.5 MG TABLET (FP) ONE (22:38)
[2023-03-11] MEDS ORDERED: DOCUSATE SODIUM 100 MG CAPSULE (FP) PO PRN (03:56)
[2023-03-11] MEDS ORDERED: ACETAMINOPHEN 1000 MG/100 ML BAG IVPB PRN (03:59)
[2023-03-11 04:59] VITALS: BMI 26.7
[2023-03-11] MEDS: INSULIN SLIDING SCALE (NOVOLOG) 1 VIAL SQ SCH ×4 (06:25→22:36)
[2023-03-11] MEDS ORDERED: RISEDRONATE PO SCH (20:45)
[2023-03-11] MEDS: ATORVASTATIN CA 80 MG TABLET (FP) PO SCH (21:57)
[2023-03-11] MEDS: METOPROLOL TARTRATE 25 MG TABLET (FP) PO SCH (21:57)
[2023-03-11] MEDS: HEPARIN NA (PORCINE) 5,000 UNITS/ML 1ML VIAL SQ SCH (21:57)
[2023-03-12] MEDS ORDERED: ACETAMINOPHEN 325 MG TABLET (FP) PO PRN (03:56)
[2023-03-12] MEDS: INSULIN SLIDING SCALE (NOVOLOG) 1 VIAL SQ SCH ×4 (06:10→21:53)
[2023-03-12] MEDS: METOPROLOL TARTRATE 25 MG TABLET (FP) PO SCH ×4 (06:15→21:46)
[2023-03-12 09:05] LABS: BASO % 0.9 % (0-2.0); HEMATOCRIT 39.8 % (32.4-45.2); HEMOGLOBIN 13.6 GM/dL (10.7-15.3); LYMPH % 20.8 % (8-40); MCH 31.9 pg (25.7-33.7); MCHC 34.1 g/dl (32.0-36.0); MEAN CELL VOLUME 93.6 fl (80-96); MEAN PLT VOLUME 9.8 fl (7.5-11.1); MONO % 9.9 % (3.8-10.2); NEUT % 61.4 % (42.8-82.8); PLATELET COUNT 233 10^3/uL (134-434); RBC 4.25 M/mm3 (3.60-5.2); RDW 14.1 % (11.6-15.6)
[2023-03-12 09:41] LABS: BLOOD UREA NITROGEN 13.9 mg/dL (7-18); POTASSIUM 4.3 mmol/L (3.5-5.1)
[2023-03-12] MEDS: ASPIRIN 81 MG CHEWABLE TABLETS PO SCH (10:48)
[2023-03-12] MEDS: HEPARIN NA (PORCINE) 5,000 UNITS/ML 1ML VIAL SQ SCH ×2 (10:49→21:47)
[2023-03-12] MEDS: ATORVASTATIN CA 80 MG TABLET (FP) PO SCH (21:46)
[2023-03-13] MEDS: METOPROLOL TARTRATE 25 MG TABLET (FP) PO SCH ×4 (06:20→22:06)
[2023-03-13] MEDS: INSULIN SLIDING SCALE (NOVOLOG) 1 VIAL SQ SCH ×4 (06:20→22:11)
[2023-03-13] MEDS: HEPARIN NA (PORCINE) 5,000 UNITS/ML 1ML VIAL SQ SCH ×2 (10:30→22:11)
[2023-03-13] MEDS: ASPIRIN 81 MG CHEWABLE TABLETS PO SCH (10:30)
[2023-03-13] MEDS ORDERED: DOCUSATE SODIUM 100 MG CAPSULE (FP) PO PRN (18:54)
[2023-03-13] MEDS ORDERED: ACETAMINOPHEN 325 MG TABLET (FP) PO PRN (18:54)
[2023-03-13] MEDS ORDERED: INSULIN (NOVOLOG) ASPART 100 UNITS/ML 10ML VIAL ONE (21:45)
[2023-03-13] MEDS ORDERED: ATORVASTATIN CA 80 MG TABLET (FP) PO SCH (22:00)
[2023-03-14] MEDS: METOPROLOL TARTRATE 25 MG TABLET (FP) PO SCH ×2 (06:56→13:28)
[2023-03-14] MEDS: INSULIN SLIDING SCALE (NOVOLOG) 1 VIAL SQ SCH ×2 (07:20→11:17)
[2023-03-14] MEDS ORDERED: ASPIRIN 81 MG CHEWABLE TABLETS PO SCH (10:00)
[2023-03-14] MEDS: HEPARIN NA (PORCINE) 5,000 UNITS/ML 1ML VIAL SQ SCH (10:14)
[2023-03-14] MEDS: amLODIPine BESYLATE 2.5 MG TABLET (FP) PO ONE ×2 (12:38→12:39)
[2023-03-14 17:37] VITALS: BP 133/60; PULSE 67; RESP 18; TEMP 97.9
== END 2023-03-14 16:00 | DRG 884 ==
LOC: JER 19:34 → JERBED 03-11 01:43 → J4W 03-11 04:37 → OBSVTOIN 03-11 15:15 → J4W 03-12 16:56 → J8W 03-13 18:22
PROVIDERS: ADMIT Student in an Organized Health Care Education/Training Program; ATTEND Internal Medicine
DX: F03.90 Unspecified dementia, unspecified severity, without behavioral disturbance, psychotic disturbance, mood disturbance, and anxiety (principal); U07.1 COVID-19; M16.11 Unilateral primary osteoarthritis, right hip; K57.90 Diverticulosis of intestine, part unspecified, without perforation or abscess without bleeding; I25.10 Atherosclerotic heart disease of native coronary artery without angina pectoris; E78.5 Hyperlipidemia, unspecified; E11.9 Type 2 diabetes mellitus without complications; I10 Essential (primary) hypertension; R26.81 Unsteadiness on feet; N81.3 Complete uterovaginal prolapse; M81.0 Age-related osteoporosis without current pathological fracture; R29.6 Repeated falls; W18.30XA Fall on same level, unspecified, initial encounter; Y93.9 Activity, unspecified; Y92.098 Other place in other non-institutional residence as the place of occurrence of the external cause
CPT/HCPCS: 0241U-QW; 36415; 70450-TC; 71045-TC-FY; 72125-TC; 72170-TC-FY; 72192-TC; 73502-TC-LT-FY; 73502-TC-RT-FY; 80048; 80053; 80307; 81003; 82962; 83605; 83735; 84100; 84484; 85025; 85610; 85730; 87086; 93005; 93010; 97116-GP; 97162-GP; 99285-25; C9803-CS; G0378; J1644; U0003; U0005